=== PATIENT | female | born 1995 | race Caucasian/White ===

== ENCOUNTER 2016-05-10 19:12 | Observation (INO) | payer OTHER ==
[2016-05-10] MEDS ORDERED: SODIUM CHLORIDE 0.9% 1,000 ML IV STA (20:12)
[2016-05-10 20:49] LABS: Basophils % (A) 0 %; CH 30.7; CHCM 35.8; Eosinophils # (A) 0.2 k/uL (0-0.7); Eosinophils % (A) 2 %; HCT 35.9 % (34.0-46.0); HDW 2.44; HGB 12.5 gm/dL (11.4-16.0); Luc # (Auto) 0.12; Luc % (Auto) 1; Lymphocytes # (A) 2.7 k/uL (1.0-4.8); Lymphocytes % (A) 21 %; MCH 29.9 pg (25.0-35.0); MCHC 34.8 g/dL (31.0-37.0); Mean Platelet Volume 8.7; Monocytes # (A) 0.7 k/uL (0-1.0); Monocytes % (A) 6 %; Neutrophils % (A) 70 %; RBC 4.17 m/uL (3.80-5.40); RDW 12.4 % (11.5-15.5); WBC 12.8 k/uL (3.8-10.6); WBC (Perox) 13.38
[2016-05-10 20:56] LABS: Amorphous Sediment,Urine Rare /hpf; Appearance,Urine Turbid (Clear); Bilirubin,Urine Negative (Negative); Glucose,Urine (UA) Negative (Negative); Ketones,Urine Negative (Negative); Leukocyte Esterase,Urine Negative (Negative); Mucus,Urine Rare /hpf; Nitrite,Urine Negative (Negative); PH, Urine 7.5 (5.0-8.0); Particle Count 20446; Protein,Urine Trace (Negative); Specific Gravity,Urine 1.019 (1.001-1.035); Squamous Epithelial Cell,Urine 8 /hpf (0-4); UA Billing (MACRO vs. MICRO) MICRO; Urobilinogen,Urine <2.0 mg/dL (<2.0)
[2016-05-10 20:58] LABS: ALT 34 U/L (9-52); AST 24 U/L (14-36); Alkaline Phosphatase 49 U/L (38-126); Amylase 34 U/L (30-110); Anion Gap 11 mmol/L; Blood Urea Nitrogen 13 mg/dL (7-17); Calcium 9.7 mg/dL (8.4-10.2); Carbon Dioxide 24 mmol/L (22-30); Chloride 103 mmol/L (98-107); Glucose 93 mg/dL (74-99); Non-African American GFR(MDRD) >60 (>60 ml/min/1.73 sqM); Sodium 138 mmol/L (137-145); Total Bilirubin 0.3 mg/dL (0.2-1.3); Total Protein 7.2 g/dL (6.3-8.2)
--- NOTE | 2016-05-10 21:38 | US ---
EXAMINATION TYPE: US OB <= 14 wk fetus DATE OF EXAM: 05/10/2016 9:16 PM COMPARISON: on PACS CLINICAL HISTORY: right side pain. EXAM PERFORMED: Transabdominal (TA) EXAM MEASUREMENTS: GESTATIONAL AGE / DATING Dates by LMP: (6 weeks/6 days) EDC: 12/28/2016 Dates by Current Scan: (7 weeks/5 days) EDC: 12/22/2016 MATERNAL ANATOMY Uterus: 8.9 x 6.2 x 4.9 cm Right Ovary: 3.0 x 1.9 x 2.2 cm Left Ovary: 2.1 x 2.0 x 1.4 cm Post CDS / Adnexa: no free fluid Presence of subchorionic bleed: no GESTATION / SURVEY CRL: 1.4 cm (7 weeks/5 days) Yolk Sac (normal less than 6mm): 3.0 mm Heart Rate: 163 bpm Rhythm: Normal IUP: Viable IUP Date of LMP: 03/23/2016, G1 Beta HcG (if available): not available TECHNOLOGIST IMPRESSION: Live single IUP measuring 6 weeks 6 days IMPRESSION: The ultrasound gestational age is 7 weeks 5 days. I see no complicating process.
--- NOTE | 2016-05-10 22:17 | ED ---
Abdominal Pain HPI - General Chief Complaint: Abdominal Pain Stated Complaint: Pain on side/8wks Time Seen by Provider: 05/10/16 20:00 Source: patient, RN notes reviewed Mode of arrival: ambulatory Limitations: no limitations - History of Present Illness Initial Comments: Patient is a 20-year-old female presenting to the with chief complaint of right lower pain. She states this only been occurring for the past day. She states that she is approximately 8 weeks . She reports no vaginal discharge or changes with urination or bowel habits. She states that the crampy dull pain. She states she does have her appendix still. Patient does have a history of cholecystectomy. Patient denies any nausea or vomiting. Patient denies any recent fever, chills, shortness of breath, chest pain, back pain, numbness or tingling, dysuria or hematuria, constipation or diarrhea, headaches or visual changes, or any other current symptoms - Related Data Home Medications Medication Instructions Recorded Confirmed Pnv with Ca,No.72/Iron/FA 1 tab PO HS 05/10/16 05/10/16 [ Plus Tablet] Allergies Allergy/AdvReac Type Severity Reaction Status Date / Time No Known Allergies Allergy Verified 05/10/16 19:49 Review of Systems ROS Statement: Those systems with pertinent positive or pertinent negative responses have been documented in the HPI. ROS Other: All systems not noted in ROS Statement are negative. Past Medical History Past Medical History: No Reported History Additional Past Medical History / Comment(s): bipolar History of Any Multi-Drug Resistant Organisms: None Reported Past Surgical History: Cholecystectomy Past Psychological History: Anxiety, Bipolar Smoking Status: Current every day smoker Past Alcohol Use History: None Reported Past Drug Use History: None Reported - Past Family History Father Family Medical History: Myocardial Infarction ([place]) General Exam - General Exam Comments Initial Comments: is a pleasant 88-year-old female. She is on appear to be in any acute distress. Limitations: no limitations General appearance: alert, in no apparent distress Head exam: Present: atraumatic, normocephalic, normal inspection Eye exam: Present: normal appearance, PERRL, EOMI. Absent: scleral icterus, conjunctival injection, periorbital swelling ENT exam: Present: normal exam, mucous membranes moist Neck exam: Present: normal inspection. Absent: tenderness, meningismus, lymphadenopathy Respiratory exam: Present: normal lung sounds bilaterally. Absent: respiratory distress, wheezes, rales, rhonchi, stridor Cardiovascular Exam: Present: regular rate, normal rhythm, normal heart sounds. Absent: systolic murmur, diastolic murmur, rubs, gallop, clicks GI/Abdominal exam: Present: soft, tenderness (She has significant right lower quadrant tenderness.), normal bowel sounds. Absent: distended, guarding, rebound, rigid External exam: Present: normal external exam Speculum exam: Present: normal speculum exam. Absent: erythema, vaginal discharge, cervical discharge, vaginal bleeding, foreign body By manual exam: Present: normal by manual exam. Absent: cervical motion tenderness, adnexal tenderness, adnexal mass Extremities exam: Present: normal inspection, full ROM, normal capillary refill. Absent: tenderness, pedal edema, joint swelling, calf tenderness Back exam: Present: normal inspection Neurological exam: Present: alert, oriented X3, CN II-XII intact Psychiatric exam: Present: normal affect, normal mood Skin exam: Present: warm, dry, intact, normal color. Absent: rash Course Vital Signs 05/10/16 05/10/16 05/11/16 19:28 22:28 00:20 Temperature 98.6 F 97.8 F Pulse Rate 104 H 72 65 Respiratory 20 18 18 Rate Blood Pressure 125/76 117/53 108/61 O2 Sat by Pulse 98 99 99 Oximetry Medical Decision Making - Medical Decision Making Patient is 20-year-old female presenting to the with 1 day of right lower quadrant abdominal pain. She states that it is worse with deep pressure. She states that she's had no vaginal bleeding. She denies any dysuria or diarrhea. She denies any vomiting. Patient's transvaginal ultrasound showed no decline in the fetus. Ultrasound appendix was obtained however the appendix was not visualized. Patient will be admitted under Dr. pérez at and repeat laboratory tomorrow considering we cannot rule out appendicitis at this time. Patient does have a slightly elevated white count of 12.8. Patient started on 2 g of Rocephin a day pain management with Tylenol. - Lab Data Result diagrams: 05/10/16 20:36 05/10/16 20:36 Lab Results 05/10/16 05/10/16 05/10/16 Range/Units 20:36 20:36 20:36 WBC 12.8 H (3.8-10.6) k/uL RBC 4.17 (3.80-5.40) m/uL Hgb 12.5 (11.4-16.0) gm/dL Hct 35.9 (34.0-46.0) % MCV 86.0 (80.0-100.0) fL MCH 29.9 (25.0-35.0) pg MCHC 34.8 (31.0-37.0) g/dL RDW 12.4 (11.5-15.5) % Plt Count 250 (150-450) k/uL Neutrophils % 70 % Lymphocytes % 21 % Monocytes % 6 % Eosinophils % 2 % Basophils % 0 % Neutrophils # 9.0 H (1.3-7.7) k/uL Lymphocytes # 2.7 (1.0-4.8) k/uL Monocytes # 0.7 (0-1.0) k/uL Eosinophils # 0.2 (0-0.7) k/uL Basophils # 0.0 (0-0.2) k/uL Sodium 138 (137-145) mmol/L Potassium 4.0 (3.5-5.1) mmol/L Chloride 103 (98-107) mmol/L Carbon Dioxide 24 (22-30) mmol/L Anion Gap 11 mmol/L BUN 13 (7-17) mg/dL Creatinine 0.60 (0.52-1.04) mg/dL Est GFR (MDRD) Af Amer >60 (>60 ml/min/1.73 sqM) Est GFR (MDRD) Non-Af >60 (>60 ml/min/1.73 sqM) Glucose 93 (74-99) mg/dL Calcium 9.7 (8.4-10.2) mg/dL Total Bilirubin 0.3 (0.2-1.3) mg/dL AST 24 (14-36) U/L ALT 34 (9-52) U/L Alkaline Phosphatase 49 (38-126) U/L Total Protein 7.2 (6.3-8.2) g/dL Albumin 4.3 (3.5-5.0) g/dL Amylase 34 (30-110) U/L Lipase 74 (23-300) U/L HCG, Quant 384024.0 mIU/mL Urine Color Yellow Urine Appearance Turbid H (Clear) Urine pH 7.5 (5.0-8.0) Ur Specific [place] 1.019 (1.001-1.035) Urine Protein Trace H (Negative) Urine Glucose (UA) Negative (Negative) Urine Ketones Negative (Negative) Urine Blood Negative (Negative) Urine Nitrate Negative (Negative) Urine Bilirubin Negative (Negative) Urine Urobilinogen <2.0 (<2.0) mg/dL Ur Leukocyte Esterase Negative (Negative) Ur Squamous Epith Cells 8 H (0-4) /hpf Amorphous Sediment Rare H (None) /hpf Urine Mucus Rare H (None) /hpf - Radiology Data Radiology results: report reviewed ultrasound shows recess images 7 weeks and 5 days. No evidence of any complicating process. Ultrasound of the appendix was inconclusive as the appendix was not visualized. Both of these are read by Dr. Hampton. Disposition Clinical Impression: , RLQ abdominal pain Disposition: ADMITTED IP TO THIS [facility] Time of Disposition: 00:03
--- NOTE | 2016-05-10 23:40 | US ---
EXAMINATION TYPE: US abdomen APPY DATE OF EXAM: 05/10/2016 11:25 PM COMPARISON: NONE CLINICAL HISTORY: RLQ pain, . APPENDIX AP Diameter (normal < 6mm): not visualized Measured outer wall to outer wall. TECHNOLOGIST IMPRESSION: RLQ scanned, appendix not visualized Is the appendix seen in its entirety from the proximal cecum to distal end: Appendix not visualized IMPRESSION: Appendix is not seen. No solid or cystic mass is seen in the right lower quadrant.
[2016-05-11] MEDS ORDERED: NALOXONE 0.4 MG/ML 1 ML VIAL IV PRN ×2 (00:04→17:41)
[2016-05-11] MEDS ORDERED: KETOROLAC 30 MG/ML 1 ML VIAL IVP PRN (00:04)
[2016-05-11 01:25] VITALS: BMI 28.3
[2016-05-11] MEDS: DEXTROSE 5%-0.45% NACL 1,000 ML IV SCH ×3 (01:32→21:34)
--- NOTE | 2016-05-11 08:25 | P.GSHP ---
History of Present Illness H&P Date: 05/11/16 Chief Complaint: Right lower quadrant pain This a 20-year-old female who presented to the emergency room with severe right lower quadrant pain. Patient states the pain initially started near her periumbilical area and then settled in the right lower quadrant. She was seen emergency room and found have acute right lower quadrant pain. The patient is approximately 6 weeks . She was placed on antibiotic last night. Patient still has complaints of significant right lower quadrant pain. - Constitutional Constitutional: Reports as per HPI Past Medical History Past Medical History: No Reported History Additional Past Medical History / Comment(s): bipolar History of Any Multi-Drug Resistant Organisms: None Reported Past Surgical History: Cholecystectomy Past Psychological History: Anxiety, Bipolar Smoking Status: Current every day smoker Past Alcohol Use History: None Reported Past Drug Use History: None Reported Additional Drug Use History / Comment(s): smokes 2 cigarettes per day - Past Family History Father Family Medical History: Myocardial Infarction ([place]) Medications and Allergies Home Medications Medication Instructions Recorded Confirmed Type Pnv with Ca,No.72/Iron/FA 1 tab PO HS 05/10/16 05/10/16 History [ Plus Tablet] Allergies Allergy/AdvReac Type Severity Reaction Status Date / Time No Known Allergies Allergy Verified 05/10/16 19:49 Surgical - Exam Vital Signs Temp Pulse Resp BP Pulse Ox 98.6 F 104 H 20 125/76 98 05/10/16 19:28 05/10/16 19:28 05/10/16 19:28 05/10/16 19:28 05/10/16 19:28 - General well developed, no distress - Eyes PERRL - ENT normal pinna - Neck no masses - Respiratory normal expansion - Cardiovascular Rhythm: regular - Abdomen Abdomen soft. There is significant right lower quadrant pain with deep palpation. Abdomen: soft Results - Labs 05/10/16 20:36 05/10/16 20:36 Assessment and Plan Plan: Right lower quadrant pain. Suspect acute appendicitis. Patient will undergo laparoscopic appendectomy. Patient is aware that she is at elevated risk due to her .
[2016-05-11 14:42] VITALS: RESP 16
[2016-05-11] MEDS ORDERED: LACTATED RINGERS 1,000 ML IV ONE ×2 (16:52→17:41)
[2016-05-11] MEDS ORDERED: PROPOFOL 10 MG/ML 20 ML VIAL IV ONE (17:13)
[2016-05-11] MEDS ORDERED: GLYCOPYRROLATE 0.2 MG/ML 2 ML VIAL ONE (17:13)
[2016-05-11] MEDS ORDERED: SUCCINYLCHOLINE CHLORIDE 100 MG/5 ML SYR IV ONE (17:13)
[2016-05-11] MEDS ORDERED: NEOSTIGMINE 1 MG/ML 10 ML VIAL ONE (17:13)
[2016-05-11] MEDS ORDERED: fentaNYL (PF) 50 MCG/ML 2 ML AMP ONE (17:13)
[2016-05-11] MEDS ORDERED: HYDROmorphone (PF) 1 MG/ML ONE (17:13)
[2016-05-11] MEDS ORDERED: ROCURONIUM BROMIDE 10 MG/ML 10 ML VIAL IV ONE (17:13)
[2016-05-11] MEDS ORDERED: BUPIVACAINE (PF) 0.25% 30 ML VIAL SQ ONE ×2 (17:29)
[2016-05-11] MEDS ORDERED: HYDROcodone/APAP 5-325MG 1 EACH TAB PO PRN (17:41)
[2016-05-11] MEDS ORDERED: HYDROmorphone 1 MG/ML 1 ML SYRINGE IVP PRN (17:41)
--- NOTE | 2016-05-11 17:41 | P.OP ---
Date of Procedure: 05/11/16 Preoperative Diagnosis: Appendicitis Postoperative Diagnosis: Appendicitis Procedure(s) Performed: Laparoscopic appendectomy Anesthesia: LUCRECIA Surgeon: Marc Yoder Estimated Blood Loss (ml): 5 Pathology: other (Appendix) Condition: stable Disposition: PACU Description of Procedure: HThe patient's placed on the operating table in the supine position. The patient received general anesthesia. The abdomen was prepped and draped in the usual sterile fashion. The skin was anesthetized 1% local Xylocaine at the trocar sites. Using an 11 blade the skin was incised at the umbilicus. The umbilicus was grasped with a Olman clamp and then a Veress needle was placed into the peritoneal cavity. Position of the Veress needle was confirmed with positive drop test. After adequate insufflation a 5 mm trocar was placed into the peritoneal cavity. The abdomen was further insufflated. And then the laparoscope was placed in the peritoneal cavity. Next a 5 mm trocar was placed in the midline suprapubic position. And then a 10 mm trocar was placed in the midline epigastric position. The patient was rotated with the right side up and in Trendelenburg. The appendix was visualized. The appendix appeared to be inflamed. The appendix was grasped and then using the Harmonic scissors the mesoappendix was divided. A PDS Endoloop was then placed around the base of the appendix. And then the appendix was divided using Harmonic scissors. The appendix was placed into an Endo Catch and brought out through the 10 mm trocar site. The abdomen was irrigated. There is no bleeding seen. The trochars withdrawn. The skin was closed interrupted 3-0 Monocryl suture. Dermabond dressing was applied. Patient was sent to recovery room in stable condition.
--- NOTE | 2016-05-11 19:12 | US ---
EXAMINATION TYPE: US OB limited DATE OF EXAM: 05/11/2016 6:39 PM COMPARISON: on PACS CLINICAL HISTORY: Postprocedure- Appy, FHT's, Pt is 8 weeks . EXAM PERFORMED: Transabdominal (TA) GESTATIONAL AGE / DATING No growth performed on today?s study per ordering physician HEART RATE: 162 bpm RHYTHM: Normal TECHNOLOGIST IMPRESSION: Positive FHT's IMPRESSION: Limited exam. heart rate is detected as described.
[2016-05-11] MEDS: ONDANSETRON 4 MG/2 ML VIAL IVP PRN (19:21)
[2016-05-11] MEDS ORDERED: PRENATAL VIT-IRON-FOLIC ACID 1 EACH CAP PO SCH (21:00)
[2016-05-11] MEDS: ACETAMINOPHEN TAB 325 MG TAB PO PRN (21:22)
[2016-05-12] MEDS: DEXTROSE 5%-0.45% NACL 1,000 ML IV SCH ×3 (04:55→08:24)
[2016-05-12 07:13] LABS: Basophils % (A) 0 %; CH 30.4; CHCM 34.7; Eosinophils # (A) 0.2 k/uL (0-0.7); Eosinophils % (A) 2 %; HCT 33.6 % (34.0-46.0); HDW 2.45; HGB 11.3 gm/dL (11.4-16.0); Luc # (Auto) 0.16; Luc % (Auto) 2; Lymphocytes # (A) 1.7 k/uL (1.0-4.8); Lymphocytes % (A) 16 %; MCH 29.7 pg (25.0-35.0); MCHC 33.7 g/dL (31.0-37.0); Mean Platelet Volume 7.7; Monocytes # (A) 0.6 k/uL (0-1.0); Monocytes % (A) 5 %; Neutrophils # (A) 8.1 k/uL (1.3-7.7); Neutrophils % (A) 75 %; RBC 3.82 m/uL (3.80-5.40); RDW 12.4 % (11.5-15.5); WBC 10.8 k/uL (3.8-10.6); WBC (Perox) 10.79
[2016-05-12 07:35] LABS: ALT 31 U/L (9-52); AST 19 U/L (14-36); Alkaline Phosphatase 44 U/L (38-126); Anion Gap 10 mmol/L; Blood Urea Nitrogen 8 mg/dL (7-17); Calcium 8.7 mg/dL (8.4-10.2); Carbon Dioxide 22 mmol/L (22-30); Chloride 105 mmol/L (98-107); Glucose 88 mg/dL (74-99); Non-African American GFR(MDRD) >60 (>60 ml/min/1.73 sqM); Potassium 3.9 mmol/L (3.5-5.1); Sodium 137 mmol/L (137-145); Total Bilirubin 0.4 mg/dL (0.2-1.3); Total Protein 5.8 g/dL (6.3-8.2)
[2016-05-12 08:20] VITALS: BP 112/58; PULSE 68; TEMP 98.3
[2016-05-12] MEDS: ONDANSETRON 4 MG/2 ML VIAL IVP PRN (08:25)
[2016-05-12] MEDS: ACETAMINOPHEN TAB 325 MG TAB PO PRN (08:25)
== END 2016-05-12 12:35 | disposition home or self-care (01) ==
LOC: EC 19:12 → 3SUR 05-11 00:03
PROVIDERS: ADMIT Surgery; ATTEND Surgery
DX: O99.611 Diseases of the digestive system complicating pregnancy, first trimester (principal); K37 Unspecified appendicitis; Z3A.08 8 weeks gestation of pregnancy; F17.200 Nicotine dependence, unspecified, uncomplicated
CPT/HCPCS: 36415; 81025; 88304; 80053 ×2; 82150; 83690; 85025 ×2; 81001; 84702; 87491; 87591; 76705; 76815; 76801; 44970; 99285; 96361; G0378 ×2; J2710; J2405 ×2; J0696 ×2; J3010; J1170; S0197; J0330; J2704; 96365; 96376

== ENCOUNTER 2016-06-01 13:00 | Emergency (ER) | payer OTHER ==
[2016-06-01 15:15] LABS: Basophils # (A) 0.1 k/uL (0-0.2); Basophils % (A) 0 %; CH 30.9; CHCM 35.7; Eosinophils # (A) 0.3 k/uL (0-0.7); Eosinophils % (A) 2 %; HCT 37.6 % (34.0-46.0); HDW 2.47; HGB 12.7 gm/dL (11.4-16.0); Luc # (Auto) 0.16; Luc % (Auto) 1; Lymphocytes # (A) 2.3 k/uL (1.0-4.8); Lymphocytes % (A) 18 %; MCH 29.3 pg (25.0-35.0); MCHC 33.8 g/dL (31.0-37.0); MCV 86.8 fL (80.0-100.0); Mean Platelet Volume 8.3; Monocytes # (A) 0.6 k/uL (0-1.0); Monocytes % (A) 5 %; Neutrophils # (A) 9.5 k/uL (1.3-7.7); Neutrophils % (A) 74 %; RBC 4.33 m/uL (3.80-5.40); RDW 12.8 % (11.5-15.5); WBC 12.8 k/uL (3.8-10.6); WBC (Perox) 13.45
[2016-06-01] MEDS ORDERED: SODIUM CHLORIDE 0.9% 500 ML IV STA (15:20)
[2016-06-01 15:25] LABS: ALT 23 U/L (9-52); AST 30 U/L (14-36); Alkaline Phosphatase 43 U/L (38-126); Anion Gap 13 mmol/L; Blood Urea Nitrogen 10 mg/dL (7-17); Calcium 9.8 mg/dL (8.4-10.2); Carbon Dioxide 24 mmol/L (22-30); Chloride 103 mmol/L (98-107); Glucose 94 mg/dL (74-99); Non-African American GFR(MDRD) >60 (>60 ml/min/1.73 sqM); Sodium 140 mmol/L (137-145); Total Bilirubin 0.6 mg/dL (0.2-1.3); Total Protein 7.9 g/dL (6.3-8.2)
[2016-06-01 15:26] LABS: Potassium 4.6 mmol/L (3.5-5.1)
--- NOTE | 2016-06-01 15:26 | ED ---
General Adult HPI - General Chief complaint: Dizziness Stated complaint: dizzy, 10 weeks preg Time Seen by Provider: 06/01/16 14:21 Source: patient, RN notes reviewed Mode of arrival: ambulatory Limitations: no limitations - History of Present Illness Initial comments: Chief complaint and history of present illness a 20-year-old female who is 11 weeks . Patient reports for the past 2 or 3 weeks she been dizzy. She denies use of nail down the ground she hasn't fainted. Denying any headache chest pain or shortness of breath. She reports that she has nausea vomiting every other day from the . No blood. No diarrhea. Pains. - Related Data Home Medications Medication Instructions Recorded Confirmed Pnv with Ca,No.72/Iron/FA 1 tab PO HS 05/10/16 06/01/16 [ Plus Tablet] Allergies Allergy/AdvReac Type Severity Reaction Status Date / Time No Known Allergies Allergy Verified 06/01/16 13:39 Review of Systems ROS Statement: Those systems with pertinent positive or pertinent negative responses have been documented in the HPI. Review of systems no headache or visual acuity changes no chest pain or shortness of breath history of nausea vomiting every other day while . The patient's level weeks . No syncopal episodes just dizziness throughout the day. All systems were reviewed. Past medical problems significant for bipolar disorder not taking her medications for several months states she's happy does not feel sad. No significant past medical problems. Surgeries include cholecystectomy and just 3 weeks ago appendectomy. The patient's family history significant for father heart disease in a grandfather had pancreatic cancer. Patient has no ALLERGIES. She does smoke she done at 2 cigarettes per day advised continuing to stop. Patient denies any alcohol use ROS Other: All systems not noted in ROS Statement are negative. Past Medical History Past Medical History: No Reported History Additional Past Medical History / Comment(s): bipolar History of Any Multi-Drug Resistant Organisms: None Reported Past Surgical History: Cholecystectomy Past Psychological History: Anxiety, Bipolar Smoking Status: Current some day smoker Past Alcohol Use History: None Reported Past Drug Use History: None Reported Additional Drug Use History / Comment(s): smokes 2 cigarettes per day - Past Family History Father Family Medical History: Myocardial Infarction ([place]) General Exam - General Exam Comments Initial Comments: General: The patient is awake and alert, in no distress, and does not appear acutely ill. Vital signs show temperature 97.5 pulse 90 respiratory rate 20 pulse ox 99 % room air blood pressure 133/73 Eye: Pupils are equal, round and reactive to light, extra-ocular movements are intact ; there is normal conjunctiva bilaterally. No signs of icterus. Ears, nose, mouth and throat: There are moist mucous membranes and no oral lesions. Neck: The neck is supple, there is no tenderness , no anterior cervical lymphadenopathy, thyroid not enlarged. No neck stiffness. Cardiovascular: There is a regular rate and rhythm. No murmur, rub or gallop is appreciated. Respiratory: Lungs are clear to auscultation, respirations are non-labored, breath sounds are equal. No wheezes, stridor, rales, or rhonchi. Gastrointestinal: Soft, non-distended, non-tender abdomen without masses or organomegaly noted. There is no rebound or guarding present. No CVA tenderness. Bowel sounds are unremarkable. Patient is reportedly 11 weeks . Back: There is no tenderness to palpation in the midline. There is no obvious deformity. No rashes noted. Musculoskeletal: Normal ROM, no tenderness, There is no pedal edema. There is no calf tenderness or swelling. Sensation intact. Pulses equal bilaterally 2+. Neurological: CN II-XII intact, There are no obvious motor or sensory deficits. Coordination appears grossly intact. Speech is normal. No focal or lateralizing findings. Alert not dizzy at this time. Skin: Skin is warm and dry and no rashes or lesions are noted. Psychiatric: Cooperative, appropriate mood & affect, normal judgment. History of bipolar disorder but she is not taking any medications for several months. States she ran out of them has no money for them. She'll be advised to follow-up with her family physician, psychiatrist and DEPUTY PROGRAM MANAGER. Denying any depression etc. Limitations: no limitations Course Vital Signs 06/01/16 06/01/16 13:07 17:20 Temperature 97.5 F L 97.6 F Pulse Rate 90 73 Respiratory 20 16 Rate Blood Pressure 133/73 125/67 O2 Sat by Pulse 99 Oximetry Medical Decision Making - Medical Decision Making Medical decision making the patient's white count is 12.8 hemoglobin 12 hematocrit 37.7. Acid 4.6 with a BUN 10 creatinine 0.5 the GFR is 60. Glucose 94. Urine contaminated sample and the patient is not having any urinary tract infection type symptoms. Drug screen positive for marijuana. - Lab Data Result diagrams: 06/01/16 15:00 06/01/16 15:00 Lab Results 06/01/16 06/01/16 06/01/16 Range/Units 15:00 15:00 15:00 WBC 12.8 H (3.8-10.6) k/uL RBC 4.33 (3.80-5.40) m/uL Hgb 12.7 (11.4-16.0) gm/dL Hct 37.6 (34.0-46.0) % MCV 86.8 (80.0-100.0) fL MCH 29.3 (25.0-35.0) pg MCHC 33.8 (31.0-37.0) g/dL RDW 12.8 (11.5-15.5) % Plt Count 265 (150-450) k/uL Neutrophils % 74 % Lymphocytes % 18 % Monocytes % 5 % Eosinophils % 2 % Basophils % 0 % Neutrophils # 9.5 H (1.3-7.7) k/uL Lymphocytes # 2.3 (1.0-4.8) k/uL Monocytes # 0.6 (0-1.0) k/uL Eosinophils # 0.3 (0-0.7) k/uL Basophils # 0.1 (0-0.2) k/uL Sodium 140 (137-145) mmol/L Potassium 4.6 (3.5-5.1) mmol/L Chloride 103 (98-107) mmol/L Carbon Dioxide 24 (22-30) mmol/L Anion Gap 13 mmol/L BUN 10 (7-17) mg/dL Creatinine 0.50 L (0.52-1.04) mg/dL Est GFR (MDRD) Af Amer >60 (>60 ml/min/1.73 sqM) Est GFR (MDRD) Non-Af >60 (>60 ml/min/1.73 sqM) Glucose 94 (74-99) mg/dL Calcium 9.8 (8.4-10.2) mg/dL Total Bilirubin 0.6 (0.2-1.3) mg/dL AST 30 (14-36) U/L ALT 23 (9-52) U/L Alkaline Phosphatase 43 (38-126) U/L Troponin I (0.000-0.034) ng/mL Total Protein 7.9 (6.3-8.2) g/dL Albumin 4.6 (3.5-5.0) g/dL Urine Color Yellow Urine Appearance Cloudy H (Clear) Urine pH 6.0 (5.0-8.0) Ur Specific [place] 1.018 (1.001-1.035) Urine Protein Trace H (Negative) Urine Glucose (UA) Negative (Negative) Urine Ketones Negative (Negative) Urine Blood Negative (Negative) Urine Nitrate Negative (Negative) Urine Bilirubin Negative (Negative) Urine Urobilinogen <2.0 (<2.0) mg/dL Ur Leukocyte Esterase Large H (Negative) Urine RBC 1 (0-5) /hpf Urine WBC 51 H (0-5) /hpf Ur Squamous Epith Cells 30 H (0-4) /hpf Amorphous Sediment Few H (None) /hpf Urine Mucus Moderate H (None) /hpf Urine Opiates Screen Not Detected (NotDetected) Ur Oxycodone Screen Not Detected (NotDetected) Urine Methadone Screen Not Detected (NotDetected) Ur Propoxyphene Screen Not Detected (NotDetected) Ur Barbiturates Screen Not Detected (NotDetected) U Tricyclic Antidepress Not Detected (NotDetected) Ur Phencyclidine Scrn Not Detected (NotDetected) Ur Amphetamines Screen Not Detected (NotDetected) U Methamphetamines Scrn Not Detected (NotDetected) U Benzodiazepines Scrn Not Detected (NotDetected) Urine Cocaine Screen Not Detected (NotDetected) U Marijuana (THC) Screen Detected H (NotDetected) 06/01/16 Range/Units 15:00 WBC (3.8-10.6) k/uL RBC (3.80-5.40) m/uL Hgb (11.4-16.0) gm/dL Hct (34.0-46.0) % MCV (80.0-100.0) fL MCH (25.0-35.0) pg MCHC (31.0-37.0) g/dL RDW (11.5-15.5) % Plt Count (150-450) k/uL Neutrophils % % Lymphocytes % % Monocytes % % Eosinophils % % Basophils % % Neutrophils # (1.3-7.7) k/uL Lymphocytes # (1.0-4.8) k/uL Monocytes # (0-1.0) k/uL Eosinophils # (0-0.7) k/uL Basophils # (0-0.2) k/uL Sodium (137-145) mmol/L Potassium (3.5-5.1) mmol/L Chloride (98-107) mmol/L Carbon Dioxide (22-30) mmol/L Anion Gap mmol/L BUN (7-17) mg/dL Creatinine (0.52-1.04) mg/dL Est GFR (MDRD) Af Amer (>60 ml/min/1.73 sqM) Est GFR (MDRD) Non-Af (>60 ml/min/1.73 sqM) Glucose (74-99) mg/dL Calcium (8.4-10.2) mg/dL Total Bilirubin (0.2-1.3) mg/dL AST (14-36) U/L ALT (9-52) U/L Alkaline Phosphatase (38-126) U/L Troponin I <0.012 (0.000-0.034) ng/mL Total Protein (6.3-8.2) g/dL Albumin (3.5-5.0) g/dL Urine Color Urine Appearance (Clear) Urine pH (5.0-8.0) Ur Specific [place] (1.001-1.035) Urine Protein (Negative) Urine Glucose (UA) (Negative) Urine Ketones (Negative) Urine Blood (Negative) Urine Nitrate (Negative) Urine Bilirubin (Negative) Urine Urobilinogen (<2.0) mg/dL Ur Leukocyte Esterase (Negative) Urine RBC (0-5) /hpf Urine WBC (0-5) /hpf Ur Squamous Epith Cells (0-4) /hpf Amorphous Sediment (None) /hpf Urine Mucus (None) /hpf Urine Opiates Screen (NotDetected) Ur Oxycodone Screen (NotDetected) Urine Methadone Screen (NotDetected) Ur Propoxyphene Screen (NotDetected) Ur Barbiturates Screen (NotDetected) U Tricyclic Antidepress (NotDetected) Ur Phencyclidine Scrn (NotDetected) Ur Amphetamines Screen (NotDetected) U Methamphetamines Scrn (NotDetected) U Benzodiazepines Scrn (NotDetected) Urine Cocaine Screen (NotDetected) U Marijuana (THC) Screen (NotDetected) Disposition Clinical Impression: Dizziness, nonspecific Disposition: HOME SELF-CARE Condition: Fair Instructions: Dizziness (ED) Additional Instructions: Stay well-hydrated. Change positions slowly. Stop smoking as soon as possible. Follow-up your family physician and DEPUTY PROGRAM MANAGER Time of Disposition: 18:17
[2016-06-01 15:27] LABS: Amorphous Sediment,Urine Few /hpf; Appearance,Urine Cloudy (Clear); Bilirubin,Urine Negative (Negative); Glucose,Urine (UA) Negative (Negative); Ketones,Urine Negative (Negative); Leukocyte Esterase,Urine Large (Negative); Mucus,Urine Moderate /hpf; Nitrite,Urine Negative (Negative); Particle Count 19076; Protein,Urine Trace (Negative); RBC,Urine 1 /hpf (0-5); Specific Gravity,Urine 1.018 (1.001-1.035); Squamous Epithelial Cell,Urine 30 /hpf (0-4); UA Billing (MACRO vs. MICRO) MICRO; Urobilinogen,Urine <2.0 mg/dL (<2.0); WBC,Urine 51 /hpf (0-5)
[2016-06-01] MEDS: SODIUM CHLORIDE 0.9% 1,000 ML IV STA ×2 (16:48→17:00)
[2016-06-01 17:21] VITALS: RESP 16
[2016-06-01 18:28] VITALS: BP 129/71; PULSE 78; TEMP 97.4
== END 2016-06-01 18:28 | disposition home or self-care (01) ==
LOC: EC 13:00
DX: O26.891 Other specified pregnancy related conditions, first trimester (principal); R42 Dizziness and giddiness; Z3A.11 11 weeks gestation of pregnancy; F17.210 Nicotine dependence, cigarettes, uncomplicated
CPT/HCPCS: 36415; 80053; 80306; 81001; 84484; 85025; 93005; 96360; 99284

== ENCOUNTER → 2016-06-22 | Outpatient (CLI) | payer OTHER ==
--- NOTE | 2016-06-22 15:48 | US ---
EXAMINATION TYPE: US OB <= 14 wk fetus DATE OF EXAM: 06/22/2016 3:27 PM COMPARISON: In pacs May 10, 2016. CLINICAL HISTORY: Z36 Confirm dates. EXAM PERFORMED: Transabdominal (TA) pelvic ultrasound. EXAM MEASUREMENTS: GESTATIONAL AGE / DATING Physician Established: Not established yet Dates by LMP: Patient unsure Dates by First Scan: (14 weeks/0 days) EDC: 12/21/2016 Dates by Current Scan for: (13 weeks/3 days) EDC: 12/25/2016 MATERNAL ANATOMY Uterus: 15.9 x 7.7 x 10.1cm Right Ovary: 2.9 x 2.0 x 1.7cm Left Ovary: 3.5 x 1.5 x 1.5cm Post CDS / Adnexa: wnl Presence of free fluid: no Presence of corpus luteal cyst: not seen at this time Presence of subchorionic bleed: no GESTATION / SURVEY CRL: 7.3cm (13 weeks/3 days) Yolk Sac (normal less than 6mm): not seen at this time Heart Rate: 167 bpm Rhythm: Normal IUP: Viable IUP Nuchal Translucency 10-14wks (normal less than 3mm): unable to obtain due to position Date of LMP: Patient unsure Beta HcG (if available): Not available at time of exam TECHNOLOGIST IMPRESSION: Viable single IUP measuring 13 weeks 3 days with a heart rate of 167bpm and an estimated delivery date of 12/25/2016 Single live intrauterine gestation is redemonstrated as gestational sac and pole are seen. Yolk sac is not evident at this time. No free fluid is seen in pelvic cul-de-sac. Both ovaries are identified. No suspicious extraovarian adnexal masses are seen. IMPRESSION: Single live intrauterine gestation is redemonstrated, mean crown-rump length 7.3 cm corresponding to 13 week 3 day old fetus. Findings correlate with satisfactory progression from prior ultrasound.
[2016-06-22 16:16] LABS: CH 30.2; CHCM 34.4; HCT 36.1 % (34.0-46.0); HDW 2.49; HGB 12.1 gm/dL (11.4-16.0); MCH 29.6 pg (25.0-35.0); MCHC 33.6 g/dL (31.0-37.0); Mean Platelet Volume 7.4; RBC 4.11 m/uL (3.80-5.40); RDW 12.6 % (11.5-15.5); WBC 12.2 k/uL (3.8-10.6)
[2016-06-22 16:23] LABS: Glucose 80 mg/dL (74-99); Non-African American GFR(MDRD) >60 (>60 ml/min/1.73 sqM)
[2016-06-22 16:56] LABS: Hepatitis B Surface Ag Index 0.07
[2016-06-24 20:38] LABS: HIV-1/HIV-2 Ab Screen NONREAC (NON REAC)
== END | disposition home or self-care (01) ==
LOC: RADUSWWP 14:55
PROVIDERS: ATTEND Obstetrics & Gynecology
DX: Z36 Encounter for antenatal screening of mother (principal); O26.811 Pregnancy related exhaustion and fatigue, first trimester; Z3A.13 13 weeks gestation of pregnancy
CPT/HCPCS: 36415; 76801; 82565; 82947; 85027; 86762; 86780; 86850; 86900; 86901; 87340; 87389

== ENCOUNTER → 2016-07-28 | Outpatient (CLI) | payer OTHER ==
--- NOTE | 2016-07-28 12:40 | US ---
EXAMINATION TYPE: US OB anatomy transabd DATE OF EXAM: 07/28/2016 10:58 AM COMPARISON: Prior June HISTORY: Large for dates 2nd trimester O36.62X0 TECHNIQUE: Transabdominal (TA) EXAM MEASUREMENTS: GESTATIONAL AGE / DATING Physician Established: (19 weeks/1 days) EDC: 12/21/16 Dates by LMP: unknown Dates by First Scan: (19 weeks/1 days) EDC: 12/21/16 Dates by Current Scan for: (18 weeks/6 days) EDC: 12/23/16 SURVEY IUP: Single PLACENTA: Anterior PREVIA: No previa CAROLINA: 13.9 cm Normal CERVICAL LENGTH (transabdominal: norm > 3.0cm): 3.3 cm BIOMETRY PRESENTATION: Vertex LIE: Transverse lie with head maternal LT BPD: 4.3 cm 19 weeks / 1 days HC: 16.1 cm 18 weeks / 6 days AC: 13.3 cm 18 weeks / 6 days FL: 2.9 cm 19 weeks / 0 days ESTIMATED WEIGHT IN GRAMS: 264 grams ESTIMATED WEIGHT IN LBS/OZS: 0 lbs. 9 oz. WEIGHT PERCENTAGE BASED ON ESTABLISHED DATE: 32.4 % HC/AC: 1.21 normal FL/AC: 22.07 normal HEART RATE: 151 bpm RHYTHM: Normal ANATOMY SEEN (within normal limits): * Lateral Vent (< 1 cm) 0.6 cm * Cisterna Magna (< 1.1 cm) 0.3 cm * Nuchal Fold (< 0.6 cm) 0.4 cm * Cerebellum (varies with age) 1.6 cm Choroid Plexus (bilateral) Midline Falx Cavus Septi Pellucidi Four Chamber Heart Outflow tracts: LVOT/RVOT Stomach Situs Nose / Lips not well seen Diaphragm Kidneys (bilateral) Bladder Cord Insert Three Vessel Cord Longitudinal Spine Transverse Spine Arms (bilateral) Legs (bilateral) IMPRESSION: Single viable IUP 18wks/6days with TONE of 12/23/16 IMPRESSION:
== END | disposition home or self-care (01) ==
LOC: RADUSWWP 10:06
PROVIDERS: ATTEND Obstetrics & Gynecology
DX: O36.62X0 Maternal care for excessive fetal growth, second trimester, not applicable or unspecified (principal); Z3A.18 18 weeks gestation of pregnancy
CPT/HCPCS: 76811

== ENCOUNTER → 2016-07-28 | Outpatient (CLI) | payer OTHER ==
[2016-07-29 09:51] LABS: Alpha Fetoprotein 69.7 ng/mL; Alpha Fetoprotein (M.O.M) 1.51; Gestational Age (days) 4; Human Chorionic Gonadotropin 34.9 IU/mL; Inhibin A (M.O.M.) 1.98; Interpretation SeeBelow; Maternal Age at EDD (Yrs) 23; Unconjugated Estriol (M.O.M.) 0.75
== END ==
LOC: LABWHC1 11:02
PROVIDERS: ATTEND Obstetrics & Gynecology
DX: Z34.02 Encounter for supervision of normal first pregnancy, second trimester (principal); Z3A.00 Weeks of gestation of pregnancy not specified
CPT/HCPCS: 36415; 82105; 82677; 84702; 86336

== ENCOUNTER → 2016-09-05 | Outpatient (CLI) | payer OTHER ==
[2016-09-05 09:27] LABS: CH 31.1; CHCM 35.1; HCT 33.7 % (34.0-46.0); HDW 2.72; HGB 11.6 gm/dL (11.4-16.0); MCH 30.8 pg (25.0-35.0); MCHC 34.5 g/dL (31.0-37.0); MCV 89.2 fL (80.0-100.0); Mean Platelet Volume 7.8; RBC 3.78 m/uL (3.80-5.40); RDW 12.9 % (11.5-15.5); WBC 15.3 k/uL (3.8-10.6)
== END | disposition home or self-care (01) ==
LOC: LABWHC1 08:08
PROVIDERS: ATTEND Obstetrics & Gynecology
DX: Z34.02 Encounter for supervision of normal first pregnancy, second trimester (principal)
CPT/HCPCS: 36415; 82950; 85027

== ENCOUNTER 2016-10-24 13:28 | Observation (INO) | payer OTHER ==
[2016-10-24] MEDS: BETAMET ACET-BETAMETH SOD PHOS 6 MG/ML VIAL IM SCH (14:49)
[2016-10-24 15:07] VITALS: BP 140/75; PULSE 87; RESP 18; TEMP 96.9; BMI 27.6
--- NOTE | 2016-10-24 15:50 | US ---
EXAMINATION TYPE: US OB >= 14 wk fetus DATE OF EXAM: 10/24/2016 COMPARISON: CLINICAL HISTORY: 31 09/04 dilated to 1-2cm, abd and back pain. Pain TECHNIQUE: Transabdominal (TA) GESTATIONAL AGE / DATING Physician Established: (31 weeks/5 days) EDC: 12/21/2016 Dates by Current Scan: (30 weeks/0 days) EDC: 01/02/2017 SURVEY IUP: Single PLACENTA: Anterior PREVIA: No Previa [place]: 13.8 cm Normal CERVICAL LENGTH (transabdominal: norm > 3.0cm): 3.1 cm BIOMETRY PRESENTATION: Vertex BPD: 7.5 cm 30 weeks / 0 days HC: 27.9 cm 30 weeks / 3 days AC: 25.8 cm 30 weeks / 0 days FL: 5.9 cm 30 weeks / 5 days ESTIMATED WEIGHT IN GRAMS: 1534 grams ESTIMATED WEIGHT IN LBS/OZS: 3 lbs. 6 oz. WEIGHT PERCENTAGE BASED ON ESTABLISHED DATES: 6.7% HC/AC: 1.1 Normal FL/AC: 22.8 Normal HEART RATE: 158 bpm RHYTHM: Normal IMPRESSION: Live IUP measuring 30 weeks 0 days. Suboptimal visualization of cervix due to minimally distended bl adder.
[2016-10-24 16:53] LABS: Appearance,Urine Clear (Clear); Bilirubin,Urine Negative (Negative); Glucose,Urine (UA) Negative (Negative); Ketones,Urine Negative (Negative); Leukocyte Esterase,Urine Negative (Negative); Nitrite,Urine Negative (Negative); PH, Urine 5.5 (5.0-8.0); Particle Count 2817; Protein,Urine Negative (Negative); RBC,Urine <1 /hpf (0-5); Specific Gravity,Urine 1.002 (1.001-1.035); Squamous Epithelial Cell,Urine 1 /hpf (0-4); UA Billing (MACRO vs. MICRO) MICRO; Urobilinogen,Urine <2.0 mg/dL (<2.0); WBC,Urine <1 /hpf (0-5)
--- NOTE | 2016-10-24 17:32 | P.HPOB ---
History of Present Illness H&P Date: 10/24/16 Chief Complaint: Back pain, cramping This is a 20-year-old female 1 para 0 with an estimated date of confinement of 12/21/2016 by physician established first trimester ultrasound, who presents with some lower pelvic pain and some cramping today. FFN could not be collected due to recent intercourse. She was found to be dilated 1-2 cm in triage but having rare irregular contractions. She is admitted for Celestone injection and further evaluation. care has been with Dr. Schmid and has been uncomplicated up until this point. labs: 1 hour Glucola-113 Quad screen-negative Drug screen in June 2016 was positive for cannabinoids Random glucose-80 Hepatitis B surface antigen-negative Hemoglobin-12.1 Syphilis antibody-negative nonreactive Rubella-immune Blood type-O+ Antibody screen-negative HIV-nonreactive Obstetrical history: Review of Systems Constitutional: Denies chills, Denies fever Cardiovascular: Denies chest pain, Denies shortness of breath Respiratory: Denies cough Gastrointestinal: Reports abdominal pain (Irregular abdominal pain in the lower abdomen) Genitourinary: Reports pelvic pain, Reports Musculoskeletal: Reports low back pain Integumentary: Denies pruritus, Denies rash Neurological: Denies numbness, Denies weakness Psychiatric: Reports difficulty concentrating Past Medical History Past Medical History: COPD Additional Past Medical History / Comment(s): Was told she has COPD at 16 yrs of age and 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 History of Any Multi-Drug Resistant Organisms: None Reported Past Surgical History: Appendectomy, Cholecystectomy Past Anesthesia/Blood Transfusion Reactions: No Reported Reaction Past Psychological History: Anxiety, Bipolar Smoking Status: Former smoker Past Alcohol Use History: None Reported Past Drug Use History: None Reported - Past Family History Father Family Medical History: Myocardial Infarction ([place]) Medications and Allergies Home Medications Medication Instructions Recorded Confirmed Type RX: Pnv,Calcium 72/Iron/Folic Acid 1 tab PO HS 05/10/16 10/24/16 History [ Plus Tablet] Allergies Allergy/AdvReac Type Severity Reaction Status Date / Time No Known Allergies Allergy Verified 10/24/16 13:41 Exam Osteopathic Statement: *. No significant issues noted on an osteopathic structural exam other than those noted in the History and Physical/Consult. - Vital Signs Vital signs: Vital Signs Temp Pulse Resp BP Pulse Ox 10/24/16 15:01 96.9 F L 87 18 140/75 96 10/24/16 13:41 97.1 F L 80 16 114/64 97 Intake and Output 10/24/16 10/24/16 10/24/16 06:59 14:59 22:59 Other: Weight 75.296 kg 75.296 kg Patient Weight 10/25/16 06:59 Weight 75.296 kg HEENT: Within normal limits Heart: Regular rate and rhythm Lungs: Clear to auscultation bilaterally Abdomen: Cervix: 1-2 cm/60%/-2 station/ballotable heart tones: Reactive Contractions: Rare Extremities: Negative Homans Results Abnormal Lab Results - Last 24 Hours (Table) 10/24/16 Range/Units 16:41 Urine Blood Trace H (Negative) Assessment and Plan (1) 31 weeks gestation of Status: Acute (2) labor in third trimester without delivery Status: Acute Plan: Will admit for 23 hour observation. We'll give Celestone 12 mg every 24 hours 2 doses. Will obtain ultrasound and continue NST every shift or as needed for contractions. Will need to be on pelvic rest at this point. Patient is aware that she will need to be off of work for the remainder the .
--- NOTE | 2016-10-25 09:06 | P.DS ---
Providers Date of admission: 10/24/16 14:38 Expected date of discharge: 10/25/16 (After second Celestone injection) Attending physician: Dee Schmid Primary care physician: Stated None - Discharge Diagnosis(es) (1) 31 weeks gestation of Current Visit: Yes Status: Acute (2) labor in third trimester without delivery Current Visit: Yes Status: Acute Hospital Course: This is a 20-year-old female 1 para 0 at 31-5/7 weeks who presented with some lower pelvic pain and back pain. She was found to be dilated 1-1/2 cm ,/60% effaced/-2 station. She was not having regular contractions. Ultrasound was performed and showed normal fluid but an estimated weight at approximate 67th percentile based on physician changed her due date. The ultrasound is however fairly consistent with her LMP dating. Baby has been active and nonstress tests have been reactive. She has received 1 dose of Celestone will receive a second dose today. She will go home this afternoon on pelvic rest and modified bedrest. She will be given a note to be off of work the remainder the . I have advised her to follow up with Dr. Schmid in 1 week for a visit. She is advised to return to the hospital if she has any regular contractions, significant pelvic pain, rupture of membranes , or decreased movement. Patient Condition at Discharge: Stable Plan - Discharge Summary New Discharge Prescriptions: No Action Pnv,Calcium 72/Iron/Folic Acid [ Plus Tablet] 1 tab PO HS Discharge Medication List Pnv,Calcium 72/Iron/Folic Acid [ Plus Tablet] 1 tab PO HS 05/10/16 [ History] Follow up Appointment(s)/Referral(s): Dee Schmid DO [Doctor of Osteopathic Medicine] - 1 Week Activity/Diet/Wound Care/Special Instructions: Diet as tolerated. Pelvic rest. Modified bedrest. No strenuous activity. Off work. Discharge Disposition: HOME SELF-CARE
[2016-10-25] MEDS: BETAMET ACET-BETAMETH SOD PHOS 6 MG/ML VIAL IM SCH (14:38)
== END 2016-10-25 14:52 | disposition home or self-care (01) ==
LOC: FBPOP 13:28 → 4FBP 14:38
PROVIDERS: ADMIT Obstetrics & Gynecology; ATTEND Obstetrics & Gynecology
DX: O60.03 Preterm labor without delivery, third trimester (principal); O99.513 Diseases of the respiratory system complicating pregnancy, third trimester; Z3A.31 31 weeks gestation of pregnancy; R10.2 Pelvic and perineal pain; M54.9 Dorsalgia, unspecified; J44.9 Chronic obstructive pulmonary disease, unspecified; F41.9 Anxiety disorder, unspecified; F31.9 Bipolar disorder, unspecified; Z90.49 Acquired absence of other specified parts of digestive tract; M19.90 Unspecified osteoarthritis, unspecified site; Z87.891 Personal history of nicotine dependence; Z82.49 Family history of ischemic heart disease and other diseases of the circulatory system
CPT/HCPCS: 59025; 96372 ×2; 81001; 76805; G0463; G0378 ×2; J0702 ×2; 99213

== ENCOUNTER 2016-11-08 16:02 | Outpatient (CLI) | payer OTHER ==
[2016-11-08] MEDS ORDERED: LACTATED RINGERS 1,000 ML IV ONE (17:03)
[2016-11-08] MEDS ORDERED: AMPICILLIN 2,000 MG in SODIUM CHLORIDE 0.9% 100 ML IVPB STA (17:04)
--- NOTE | 2016-11-08 17:04 | P.HPOB ---
History of Present Illness H&P Date: 11/08/16 Chief Complaint: PROM 20 year old presents at 33 weeks 6 days with SROM at 1520. She has been watched for contractions and given celestone 10/24-10/25. She is currently not bettye and heart tones are 155-160. Review of Systems All systems: negative Constitutional: Denies chills, Denies fever Eyes: denies blurred vision, denies pain Ears, nose, mouth and throat: Denies headache, Denies sore throat Cardiovascular: Denies chest pain, Denies shortness of breath Respiratory: Denies cough Gastrointestinal: Denies abdominal pain, Denies diarrhea, Denies nausea, Denies vomiting Genitourinary: Denies dysuria, Denies hematuria Musculoskeletal: Denies myalgias Integumentary: Denies pruritus, Denies rash Neurological: Denies numbness, Denies weakness Psychiatric: Denies anxiety, Denies depression Endocrine: Denies fatigue, Denies weight change Past Medical History Past Medical History: COPD Additional Past Medical History / Comment(s): Obstetric history: She has had care with ct since 12 weeks. O+, abs neg, Rub Imm, Treponemal ab neg, HIV NR, Hep B neg. She did have some contractions and was given celestone 2 weeks ago. History of Any Multi-Drug Resistant Organisms: None Reported Past Surgical History: Appendectomy, Cholecystectomy Past Anesthesia/Blood Transfusion Reactions: No Reported Reaction Smoking Status: Former smoker Past Drug Use History: Marijuana - Past Family History Father Family Medical History: Myocardial Infarction ([place]) Medications and Allergies Home Medications Medication Instructions Recorded Confirmed Type Pnv,Calcium 72/Iron/Folic Acid 1 tab PO HS 05/10/16 10/24/16 History [ Plus Tablet] Allergies Allergy/AdvReac Type Severity Reaction Status Date / Time No Known Allergies Allergy Verified 11/08/16 16:39 Exam Osteopathic Statement: *. No significant issues noted on an osteopathic structural exam other than those noted in the History and Physical/Consult. - Vital Signs Vital signs: Intake and Output 11/08/16 11/08/16 11/08/16 06:59 14:59 22:59 Other: Weight 78.471 kg Patient Weight 11/09/16 06:59 Weight 78.471 kg HEart: RRR Lungs: CTAB Abdomen: soft, nontender Extermeties: neg anel's Assessment and Plan (1) premature rupture of membranes Status: Acute Plan: 1. repeat betamethasone 2. transfer to [facility] [place] 3. Ampicillin to start IV abx
[2016-11-08 17:52] VITALS: BP 142/86; PULSE 103; RESP 18; TEMP 98.4
[2016-11-08] MEDS ORDERED: BETAMET ACET-BETAMETH SOD PHOS 6 MG/ML VIAL IM SCH (18:00)
--- NOTE | 2016-11-09 07:35 | P.MSEPDOC ---
Presenting Problems - Arrival Data Date of Arrival on Unit: 11/08/16 Time of Arrival on Unit: 16:02 Mode of Transport: Ambulatory - Complaint OB-Reason for Admission/Chief Complaint: Rule Out PROM Medical History - Information : 1 Para: 0 Term: 0 : 0 Abortions: Spontaneous or Elective: 0 Number of Living Children: 0 - Gestational Age Expected Date of Delivery: 12/21/16 Gestational Age by TONE (wks/days): 34 Weeks and 0 Days Review of Systems - Review of Systems Constitutional: No problems Breast: No problems ENT: No problems Cardiovascular: No problems Respiratory: No problems Gastrointestinal: No problems Genitourinary: No problems Musculoskeletal: No problems Neurological: No problems Skin: No problems Vital Signs - Temperature Temperature: 98.4 F Temperature Source: Temporal Artery Scan - Pulse Right Brachial Pulse Rate: 103 Pulse Assessment Method: Automatic Cuff - Respirations Respiratory Rate: 18 Oxygen Delivery Method: Room Air O2 Sat by Pulse Oximetry: 98 - Blood Pressure Right Arm Blood Pressure: 142/86 Blood Pressure Mean: 104 Blood Pressure Source: Automatic Cuff Medical Screen Scoring (Pre) - Cervical Exam Dilation: 1-3 cm = 1 Membranes: Ruptured = 3 - Uterine Contractions Frequency: N/A Duration: N/A Intensity: N/A - Maternal Vital Signs Maternal Temperature: N/A Maternal Blood Pressure: Systolic >139 = 2 Signs of Preeclampsia: N/A Maternal Respirations: N/A - Maternal Trauma Maternal Trauma: N/A - Assessment Baseline FHR: 150 Heart Rate - NICHD Category: Category I (Normal) = 0 NST: Reactive Position: N/A Station: N/A - Total Score Total Score (Pre): 6 - Level of Risk Level of Risk: Medium (6-9) Physician Notification (Pre) - Physician Notified Physician Notified Date: 11/08/16 Physician Notified Time: 16:35 Physician/Practitioner Notifed:: Dr. Schmid Spoke With: New Order Received: No - Notification Comment Comment: Dr. Schmid coming over to see pt Disposition - Disposition OB Disposition: Transfer to other dept./facility Transferred to:: [facility] for PROM at 33 6/7 [place] Discharge Date: 11/08/16 Discharge Time: 18:04 I agree with the RN Medical Screening Exam: Yes Risk & Benefit of care provided described in d/c instruction: Yes Risk & Benefit of Care Comment: I did see the patient in triage and transferred her to [facility] for PPROM due to her status Diagnosis: ERNESTO ROM, ONSET LABOR W/N 24 HR OF RUPT, UNSP WEEKS OF GEST
== END 2016-11-08 18:04 ==
LOC: FBPOP 16:02
PROVIDERS: ATTEND Obstetrics & Gynecology
DX: O42.913 Preterm premature rupture of membranes, unspecified as to length of time between rupture and onset of labor, third trimester (principal); Z3A.34 34 weeks gestation of pregnancy
CPT/HCPCS: 59025; 96361; 96365; 84112; G0463; J0702; J0290; 99214

== ENCOUNTER → 2017-08-28 | Outpatient (CLI) | payer OTHER | END | disposition home or self-care (01) | LOC: LABWHC1 12:10 | PROVIDERS: ATTEND Obstetrics & Gynecology | DX: Z34.80 Encounter for supervision of other normal pregnancy, unspecified trimester (principal); Z3A.00 Weeks of gestation of pregnancy not specified | CPT/HCPCS: 36415; 84702 ==

== ENCOUNTER → 2017-10-03 | Outpatient (CLI) | payer OTHER ==
--- NOTE | 2017-10-03 22:14 | MR ---
EXAMINATION TYPE: MR cspine/lspine wo con DATE OF EXAM: 10/03/2017 COMPARISON: NONE HISTORY: Neck pain CONTRAST: Performed utilizing 0 mL intravenous Gadavist gadolinium contrast. TECHNIQUE: Multiplanar multiecho imaging on a 3.0 Zeenat magnet is performed through the cervical spin e. FINDINGS: The craniovertebral junction is normal. Vertebral body alignment is normal. Spinal cord maintains normal signal through its visualized course. C7-T1: No focal disc herniation or significant disc bulge is evident. No spinal canal stenosis or n eural foraminal stenosis is present. C6-7: Very subtle disc bulge may be present C6-7 with anterior thecal sac contact. No cord contact is evident. No spinal canal stenosis is present. Neural foramen are patent.. C5-6: Very subtle disc bulge may be present C5-6 with anterior thecal sac contact. No cord contact is evident. No spinal canal stenosis is present. Neural foramen are patent.. C4-5: No focal disc herniation or significant disc bulge is evident. No spinal canal stenosis or bianca ral foraminal stenosis is present. C3-4: No focal disc herniation or significant disc bulge is evident. No spinal canal stenosis or bianca ral foraminal stenosis is present. C2-3: No focal disc herniation or significant disc bulge is evident. No spinal canal stenosis or bianca ral foraminal stenosis is present. IMPRESSIONS: 1. Very minimal symmetrical bulging C5-6, C6-7 with anterior thecal sac contact. No stenosis is evide nt. 2. Very mild disc desiccation is present at C5-6, C6-7 levels. EXAMINATION TYPE: MR bubbaine/urbano wo con DATE OF EXAM: 10/03/2017 COMPARISON: NONE HISTORY: Low back pain CONTRAST: 0 mL intravenous Gadavist. TECHNIQUE: Multiplanar, multisequence images of the lumbar spine were acquired. FINDINGS: L5-S1: There is a tiny central protrusion. T2-weighted sequences there is increased signal in the pos terior substance of the disc space compatible with small annular tear. No spinal canal stenosis. No foraminal stenosis. . L4-L5: No significant disc bulge or disc herniation. No spinal canal stenosis. No foraminal stenosi s. . L3-L4: No significant disc bulge or disc herniation. No spinal canal stenosis. No foraminal stenosi s. . L2-L3: No significant disc bulge or disc herniation. No spinal canal stenosis. No foraminal stenosi s. . L1-L2: No significant disc bulge or disc herniation. No spinal canal stenosis. No foraminal stenosi s. . T12-L1: No significant disc bulge or disc herniation. No spinal canal stenosis. No foraminal stenos is. . Disc heights are preserved. Disc hydration is preserved. Vertebral body heights are preserved. Alignm ent is normal. IMPRESSION: 1. Small annular tear with a small central protrusion L5-S1. No thecal sac contact or nerve root cont act is evident.
== END | disposition home or self-care (01) ==
LOC: RADMRIMAIN 21:02
PROVIDERS: ATTEND Psychiatry & Neurology Neurology
DX: M50.222 Other cervical disc displacement at C5-C6 level (principal); M51.27 Other intervertebral disc displacement, lumbosacral region; M53.86 Other specified dorsopathies, lumbar region
CPT/HCPCS: 72141; 72148

== ENCOUNTER 2017-12-30 12:42 | Emergency (ER) | payer OTHER ==
[2017-12-30 12:56] VITALS: BP 118/69; PULSE 95; RESP 20; TEMP 98.4
[2017-12-30] MEDS ORDERED: SODIUM CHLORIDE 0.9% 1,000 ML IV STA (13:21)
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
[2017-12-30 13:53] LABS: Basophils # (A) 0.1 k/uL (0-0.2); Basophils % (A) 1 %; Eosinophils # (A) 0.2 k/uL (0-0.7); Eosinophils % (A) 2 %; HCT 41.3 % (34.0-46.0); HGB 14.2 gm/dL (11.4-16.0); Lymphocytes # (A) 1.7 k/uL (1.0-4.8); Lymphocytes % (A) 14 %; MCH 30.1 pg (25.0-35.0); MCHC 34.4 g/dL (31.0-37.0); MCV 87.4 fL (80.0-100.0); Monocytes # (A) 0.5 k/uL (0-1.0); Monocytes % (A) 4 %; Neutrophils # (A) 9.7 k/uL (1.3-7.7); Neutrophils % (A) 79 %; Platelet Count 275 k/uL (150-450); RBC 4.72 m/uL (3.80-5.40); RDW 13.5 % (11.5-15.5); WBC 12.3 k/uL (3.8-10.6)
[2017-12-30 13:59] LABS: ALT 29 U/L (9-52); AST 29 U/L (14-36); Albumin 4.8 g/dL (3.5-5.0); Alkaline Phosphatase 55 U/L (38-126); Anion Gap 14 mmol/L; Blood Urea Nitrogen 16 mg/dL (7-17); Calcium 10.1 mg/dL (8.4-10.2); Carbon Dioxide 23 mmol/L (22-30); Chloride 103 mmol/L (98-107); Glucose 113 mg/dL (74-99); Potassium 3.5 mmol/L (3.5-5.1); Sodium 140 mmol/L (137-145); Total Bilirubin 0.7 mg/dL (0.2-1.3); Total Protein 8.1 g/dL (6.3-8.2)
[2017-12-30 14:01] LABS: Appearance,Urine Clear (Clear); Bilirubin,Urine Negative (Negative); Blood,Urine Negative (Negative); Color,Urine Colorless; Glucose,Urine (UA) Negative (Negative); Ketones,Urine Trace (Negative); Leukocyte Esterase,Urine Negative (Negative); Nitrite,Urine Negative (Negative); PH, Urine 5.5 (5.0-8.0); Protein,Urine Negative (Negative); Specific Gravity,Urine 1.003 (1.001-1.035); Urobilinogen,Urine <2.0 mg/dL (<2.0)
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
== END 2017-12-30 16:24 | disposition home or self-care (01) ==
LOC: EC 12:42
DX: S30.1XXA Contusion of abdominal wall, initial encounter (principal); M25.511 Pain in right shoulder; M25.531 Pain in right wrist; M54.2 Cervicalgia; M54.9 Dorsalgia, unspecified; J44.9 Chronic obstructive pulmonary disease, unspecified; Z87.891 Personal history of nicotine dependence; W22.11XA Striking against or struck by driver side automobile airbag, initial encounter; V49.40XA Driver injured in collision with unspecified motor vehicles in traffic accident, initial encounter; Y92.410 Unspecified street and highway as the place of occurrence of the external cause
CPT/HCPCS: 36415; 80053; 85025; 81003; 81025; 73030; 73110; 72125; 70450; 71260; 74177; 99284; 96360; Q9967

== ENCOUNTER → 2018-03-02 | Outpatient (CLI) | payer OTHER ==
--- NOTE | 2018-03-02 15:28 | XR ---
EXAMINATION TYPE: XR hand complete RT DATE OF EXAM: 03/02/2018 COMPARISON: 12/30/2017 HISTORY: Arthralgia right hand TECHNIQUE: Three-view right hand with an additional dedicated image right fifth digit FINDINGS: Joint spaces are preserved. Soft tissues are normal. No acute or subacute fractures are zoila dent. IMPRESSION: 1. Normal fifth digit
== END ==
LOC: RADXRMAIN 14:56
PROVIDERS: ATTEND Family Medicine
DX: M25.541 Pain in joints of right hand (principal); S63.656A Sprain of metacarpophalangeal joint of right little finger, initial encounter

== ENCOUNTER 2018-04-13 07:00 | Emergency (ER) | payer OTHER ==
[2018-04-13 07:22] VITALS: RESP 18
[2018-04-13] MEDS ORDERED: KETOROLAC 30 MG/ML 1 ML VIAL IM STA (07:27)
[2018-04-13] MEDS ORDERED: IPRATROPIUM-ALBUTEROL 3 ML NEB INHALATION STA (07:28)
--- NOTE | 2018-04-13 07:29 | ED ---
Chest Pain HPI - General Chief Complaint: Chest Pain Stated Complaint: Chest Pain/TAYLOR Time Seen by Provider: 04/13/18 07:15 Source: patient Mode of arrival: ambulatory Limitations: no limitations - History of Present Illness Initial Comments: is a 22-year-old female with no significant past medical history presents the emergency department today for evaluation of chest pain and shortness of breath. 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 She reports for the past 2 days she's been experiencing a sharp pain in her sternum. Pain is worse with any palpation or movement. She states and Tylenol with no improvement in this pain. She describes the pain as sharp in 10 out of 10. Never expressed pain like this in the past. She also reports she feels as though she can't take a deep breath due to the pain. She has no cardiac history. No history of DVT or PE. - Related Data Previous Rx's Medication Instructions Recorded Ibuprofen [Motrin] 600 mg PO Q6HR PRN #40 day 12/30/17 Allergies Allergy/AdvReac Type Severity Reaction Status Date / Time No Known Allergies Allergy Verified 04/13/18 08:11 Review of Systems ROS Statement: Those systems with pertinent positive or pertinent negative responses have been documented in the HPI. ROS Other: All systems not noted in ROS Statement are negative. EKG Findings - EKG Comments: EKG Findings:: EKG obtained at 7:34 AM, rate is 57, rhythm is sinus bradycardia cardiac, there are no acute ST elevations or depressions no evidence of acute ischemia or infarction. Past Medical History Past Medical History: COPD Additional Past Medical History / Comment(s): Obstetric history: She has had care with ok since 12 weeks. O+, abs neg, Rub Imm, Treponemal ab neg, HIV NR, Hep B neg. She did have some contractions and was given celestone 2 weeks ago. History of Any Multi-Drug Resistant Organisms: None Reported Past Surgical History: Appendectomy, Cholecystectomy Past Anesthesia/Blood Transfusion Reactions: No Reported Reaction Past Psychological History: Anxiety, Bipolar Smoking Status: Former smoker Past Alcohol Use History: None Reported Past Drug Use History: Marijuana - Past Family History Father Family Medical History: Myocardial Infarction ([place]) General Exam - General Exam Comments Initial Comments: Physical Exam GENERAL: Patient is well-developed and well-nourished. Patient is nontoxic and well- hydrated and is in no distress. HENT: Normocephalic, Atraumatic. EYES: PERRL, EOMI PULMONARY: Unlabored respirations. No audible rales rhonchi or wheezing was noted. CARDIOVASCULAR: There is a regular rate and rhythm without any murmurs gallops or rubs. ABDOMEN: Soft and nontender with normal bowel sounds. SKIN: Skin is clear with no lesions or rashes and otherwise unremarkable. : Deferred NEUROLOGIC: Patient is alert and oriented x3. Moving all extremities spontaneously MUSCULOSKELETAL: Normal extremities with adequate strength and full range of motion. No lower extremity swelling or edema. No calf tenderness. PSYCHIATRIC: Normal psychiatric evaluation. Limitations: no limitations Limitations: no limitations Course Vital Signs 04/13/18 04/13/18 04/13/18 07:05 07:16 07:50 Temperature 98.5 F 98.4 F Pulse Rate 86 95 64 Respiratory 20 18 Rate Blood Pressure 114/75 120/85 O2 Sat by Pulse 100 99 Oximetry 04/13/18 07:55 Temperature Pulse Rate 81 Respiratory Rate Blood Pressure O2 Sat by Pulse Oximetry Chest Pain MDM - MDM She was seen and evaluated history obtained from patient Patient with chest pain that is reproducible upon palpation, worse with movement and heavy lifting Cardiac risk factors Advised suspicion for costochondritis however we will obtain EKG, chest x-ray and should with Toradol X-ray unremarkable, EKG non-ischemic Patient discharged home with by mouth Motrin and advised to rest and follow-up with primary care physician. Return parameters were discussed or question pertaining care answered patient discharged home in stable condition. Disposition Clinical Impression: Costochondral chest pain Disposition: HOME SELF-CARE Instructions: Costochondritis (ED) Is patient prescribed a controlled substance at d/c from ED?: No Referrals: Tarsha Gallagher MD [Primary Care Provider] - 1-2 days Time of Disposition: 08:23
--- NOTE | 2018-04-13 08:18 | XR ---
EXAMINATION TYPE: XR chest 2V DATE OF EXAM: 04/13/2018 COMPARISON: 07/31/2013 INDICATION: Pain, COPD TECHNIQUE: Frontal and lateral views of the chest are obtained. FINDINGS: The heart size is normal. The pulmonary vasculature is normal. The lungs are clear. IMPRESSION: 1. No acute pulmonary process.
[2018-04-13 09:12] VITALS: BP 110/68; PULSE 68; TEMP 97.9
== END 2018-04-13 09:11 | disposition home or self-care (01) ==
LOC: EC 07:00
DX: R07.1 Chest pain on breathing (principal); R06.02 Shortness of breath; Z87.891 Personal history of nicotine dependence
CPT/HCPCS: 71046; 93005; 94640; 96372; 99285

== ENCOUNTER → 2018-04-17 | Outpatient (CLI) | payer OTHER ==
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
== END | disposition home or self-care (01) ==
LOC: RADMRIMAIN 14:50
PROVIDERS: ATTEND Family Medicine
DX: M25.561 Pain in right knee (principal)

== ENCOUNTER 2018-05-22 21:51 | Emergency (ER) | payer OTHER ==
[2018-05-22] MEDS ORDERED: LIDOCAINE 5% PATCH TOPICAL STA (22:10)
--- NOTE | 2018-05-22 22:14 | ED ---
General Adult HPI - General Chief complaint: Chest Pain Stated complaint: Chest and rt arm pain Time Seen by Provider: 05/22/18 22:14 Source: patient Mode of arrival: ambulatory Limitations: no limitations - Related Data Home Medications Medication Instructions Recorded Confirmed Cyclobenzaprine [Flexeril] 5 mg PO BID PRN 05/22/18 05/22/18 Ibuprofen [Motrin] 800 mg PO BID PRN 05/22/18 05/22/18 Pregabalin [Lyrica] 50 mg PO BID 05/22/18 05/22/18 Allergies Allergy/AdvReac Type Severity Reaction Status Date / Time No Known Allergies Allergy Verified 05/22/18 22:01 Review of Systems ROS Statement: Those systems with pertinent positive or pertinent negative responses have been documented in the HPI. ROS Other: All systems not noted in ROS Statement are negative. Past Medical History Past Medical History: COPD Additional Past Medical History / Comment(s): Obstetric history: She has had care with in since 12 weeks. O+, abs neg, Rub Imm, Treponemal ab neg, HIV NR, Hep B neg. She did have some contractions and was given celestone 2 weeks ago. History of Any Multi-Drug Resistant Organisms: None Reported Past Surgical History: Appendectomy, Cholecystectomy Past Anesthesia/Blood Transfusion Reactions: No Reported Reaction Past Psychological History: Anxiety, Bipolar Smoking Status: Current some day smoker Past Alcohol Use History: None Reported Past Drug Use History: Marijuana - Past Family History Father Family Medical History: Myocardial Infarction ([place]) General Exam Limitations: no limitations Course Vital Signs 05/22/18 21:53 Temperature 98.3 F Pulse Rate 68 Respiratory 17 Rate Blood Pressure 128/72 O2 Sat by Pulse 100 Oximetry Medical Decision Making - Medical Decision Making Dictation was produced using [employer] dictation software. please excuse any grammatical, word or spelling errors. Chief Complaint: 22-year-old female with no significant past medical history presents with History of Present Illness: 22-year-old female presents with one-day history of right-sided chest pain radiation to the right arm. Patient states she was on her phone when this pain started spontaneously. She states that it sharp. Denies any inciting event. Denies any trauma to the chest. Patient states her symptoms are worse with palpation and shoulder abduction. Patient has no complaints. Denies any numbness and paresthesias to the extremities. The ROS documented in this emergency department record has been reviewed and confirmed by me. Those systems with pertinent positive or negative responses have been documented in the HPI. All other systems are other negative and/or noncontributory. PHYSICAL EXAM: General Impression: Alert and oriented x3, not in acute distress HEENT: Normocephalic atraumatic, extra-ocular movements intact, pupils equal and reactive to light bilaterally, mucous membranes moist. Cardiovascular: Heart regular rate and rhythm, S1&S2 audible, no murmurs, rubs or gallops Chest: Lungs clear to auscultation bilaterally, no rhonchi, no wheeze, no rales Abdomen: Bowel sounds present, abdomen soft, non-tender, non-distended, no organomegaly Musculoskeletal: Pulses present and equal in all extremities, no peripheral edema, tenderness to palpation to the right anterior chest. Pain is elicited with right upper extremity abduction. Motor: Power 5/5 bilaterally, no focal deficits noted Neurological: CN II-XII grossly intact, no focal motor or sensory deficits noted Skin: Intact with no visualized rashes Psych: Normal affect and mood ED course: 22-year-old female with clinical presentation consistent with atypical chest pain. Vital signs upon arrival are within acceptable limits. Patient's pain is reproduced with musculoskeletal examination. Lidocaine patch and Naprosyn was administered patient. Patient was observed in ER for couple hours. Patient reevaluated with improvement symptoms. Patient told to rest the area and avoid any strenuous activity. Told to follow up with primary care physician for outpatient medicine or symptoms. Chest x-ray and EKG are benign EKG interpretation: Ventricular rate 72, normal sinus rhythm, PA interval 150, care is 80, QTc 479. No PA prolongation, no QTC prolongation, no ST or T-wave changes noted. . Overall, this EKG is unremarkable - Lab Data Lab Results 05/22/18 Range/Units 23:00 Urine HCG, Qual Not Detected (Not Detectd) Disposition Clinical Impression: Chest pain Disposition: HOME SELF-CARE Condition: Good Instructions (If sedation given, give patient instructions): Costochondritis ( ED) Is patient prescribed a controlled substance at d/c from ED?: No Referrals: Tarsha Gallagher MD [Primary Care Provider] - 1-2 days Time of Disposition: 00:19
--- NOTE | 2018-05-22 23:31 | XR ---
EXAMINATION TYPE: XR chest 2V DATE OF EXAM: 05/22/2018 COMPARISON: 04/13/2018 HISTORY: Chest pain TECHNIQUE: Frontal and lateral views of the chest are obtained. FINDINGS: Heart and mediastinum are normal. Lungs are clear. Diaphragm is normal. Bony thorax appear s normal. There are chest leads. IMPRESSION: Normal chest. No change.
[2018-05-23] MEDS ORDERED: NAPROXEN 250 MG TAB PO STA (00:04)
[2018-05-23 00:19] VITALS: BP 121/74; PULSE 79; RESP 18; TEMP 97.9
== END 2018-05-23 00:25 | disposition home or self-care (01) ==
LOC: EC 21:51
DX: R07.89 Other chest pain (principal); M79.601 Pain in right arm; F17.200 Nicotine dependence, unspecified, uncomplicated; Z87.09 Personal history of other diseases of the respiratory system; Z82.49 Family history of ischemic heart disease and other diseases of the circulatory system; Z79.899 Other long term (current) drug therapy
CPT/HCPCS: 71046; 81025; 93005; 99285

== ENCOUNTER 2018-10-28 06:42 | Emergency (ER) | payer OTHER ==
[2018-10-28] MEDS ORDERED: SODIUM CHLORIDE 0.9% 500 ML 500 ML IV STA (07:19)
[2018-10-28 07:37] LABS: Appearance,Urine Cloudy (Clear); Bacteria,Urine Rare /hpf; Bilirubin,Urine Negative (Negative); Blood,Urine Negative (Negative); Color,Urine Yellow; Glucose,Urine (UA) Negative (Negative); Ketones,Urine Negative (Negative); Leukocyte Esterase,Urine Trace (Negative); Mucus,Urine Moderate /hpf; Nitrite,Urine Negative (Negative); PH, Urine 5.5 (5.0-8.0); Protein,Urine Trace (Negative); RBC,Urine 1 /hpf (0-5); Specific Gravity,Urine 1.026 (1.001-1.035); Sperm,Urine Rare /hpf; Squamous Epithelial Cell,Urine 11 /hpf (0-4); Urobilinogen,Urine <2.0 mg/dL (<2.0)
--- NOTE | 2018-10-28 07:40 | ED ---
General Adult HPI - General Chief complaint: Nausea/Vomiting/Diarrhea Stated complaint: Chest Pain Nausea Time Seen by Provider: 10/28/18 07:01 Source: patient, RN notes reviewed Mode of arrival: wheelchair Limitations: no limitations - History of Present Illness Initial comments: 22-year-old female with a past medical history of asthma presents to the emergency department for a chief complaint of chest pain. Sates this chest pain has been ongoing for the past night. States she's also been vomiting. Denies any abdominal pain States these started at the same time. Patient states movement makes the pain in her chest worse. Patient states breathing also makes the pain worse. States it is a sharp stabbing pain that radiates throughout her chest. States she just stopped taking control this month but otherwise have been on oral contraceptives for quite some time. Admits to shortness of breath as well but states she always has this shortness of breath. States she has had chest pain before but that this is worse.Patient has no other complaints at this time including shortness of breath, chest pain, abdominal pain, headache, or visual changes. - Related Data Home Medications Medication Instructions Recorded Confirmed Cyclobenzaprine [Flexeril] 5 mg PO BID PRN 05/22/18 10/28/18 Ibuprofen [Motrin] 800 mg PO BID PRN 05/22/18 10/28/18 Albuterol Inhaler [Ventolin Hfa 2 puff INHALATION RT-Q4H PRN 10/28/18 10/28/18 Inhaler] Pregabalin [Lyrica] 75 mg PO BID 10/28/18 10/28/18 Previous Rx's Medication Instructions Recorded Ondansetron [Zofran ODT] 4 mg PO Q8HR PRN #15 tab 10/28/18 Allergies Allergy/AdvReac Type Severity Reaction Status Date / Time No Known Allergies Allergy Verified 10/28/18 08:48 Review of Systems ROS Statement: Those systems with pertinent positive or pertinent negative responses have been documented in the HPI. ROS Other: All systems not noted in ROS Statement are negative. Past Medical History Past Medical History: COPD Additional Past Medical History / Comment(s): Obstetric history: She has had care with [facility] since 12 weeks. O+, abs neg, Rub Imm, Treponemal ab neg, HIV NR, Hep B neg. She did have some contractions and was given christie stone 2 weeks ago, History of Any Multi-Drug Resistant Organisms: None Reported Past Surgical History: Appendectomy, Cholecystectomy Past Anesthesia/Blood Transfusion Reactions: No Reported Reaction Past Psychological History: Anxiety, Bipolar Smoking Status: Former smoker Past Alcohol Use History: None Reported Past Drug Use History: Marijuana - Past Family History Father Family Medical History: Myocardial Infarction ([place]) General Exam Limitations: no limitations General appearance: alert, in no apparent distress Head exam: Present: atraumatic, normocephalic, normal inspection Eye exam: Present: normal appearance, PERRL, EOMI. Absent: scleral icterus, conjunctival injection, periorbital swelling ENT exam: Present: normal exam, mucous membranes moist Neck exam: Present: normal inspection, full ROM. Absent: tenderness, meningismus, lymphadenopathy Respiratory exam: Present: normal lung sounds bilaterally, chest wall tenderness (Patient does have chest wall tenderness, reproducible with palpation). Absent: respiratory distress, wheezes, rales, rhonchi, stridor Cardiovascular Exam: Present: regular rate, normal rhythm, normal heart sounds. Absent: systolic murmur, diastolic murmur, rubs, gallop, clicks GI/Abdominal exam: Present: soft, normal bowel sounds. Absent: distended, tenderness (No tenderness noted to the abdomen), guarding, rebound, rigid Neurological exam: Present: alert, oriented X3, CN II-XII intact Psychiatric exam: Present: normal affect, normal mood Course Vital Signs 10/28/18 10/28/18 06:46 08:40 Temperature 98.2 F 98.4 F Pulse Rate 67 70 Respiratory 17 18 Rate Blood Pressure 118/75 114/78 O2 Sat by Pulse 100 100 Oximetry EKG Findings - EKG Comments: EKG Findings:: Sinus bradycardia, ventricular rate 50, TN interval 136, QRS duration 86, QTC 410 Medical Decision Making - Medical Decision Making 22-year-old female presents with chest pain and vomiting since last night. Patient states she has had chest pain before and has been seen in the ER several times for chest pain. On exam pain is reproducible to palpation of the chest. Vitals are stable. Exam is unremarkable, patient is resting comfortably, playing on her phone. CBC and CMP are unremarkable. However there is a lipase of 564 noted, likely related to vomiting as patient has no abdominal tenderness whatsoever including epigastric tenderness. Urine is negative. EKG shows a normal sinus rhythm. Troponin negative. D-dimer negative. Chest x-ray negative. Patient reevaluated. Still having some pain, given Toradol, resting comfortably at this time even the pain is worse with movement and is reproducible on exam is likely chest wall pain. Vomiting may be secondary to a developing gastroenteritis, no abdominal pain whatsoever at this time however. Discussed following up with primary care in 1-2 days. Discussed returning here if she has any worsening symptoms. - Lab Data Result diagrams: 10/28/18 07:40 10/28/18 07:40 Lab Results 10/28/18 10/28/18 10/28/18 Range/Units 06:52 06:52 07:40 WBC 8.9 (3.8-10.6) k/uL RBC 4.32 (3.80-5.40) m/uL Hgb 12.9 (11.4-16.0) gm/dL Hct 36.9 (34.0-46.0) % MCV 85.6 (80.0-100.0) fL MCH 29.9 (25.0-35.0) pg MCHC 34.9 (31.0-37.0) g/dL RDW 13.7 (11.5-15.5) % Plt Count 246 (150-450) k/uL Neutrophils % 61 % Lymphocytes % 28 % Monocytes % 6 % Eosinophils % 2 % Basophils % 1 % Neutrophils # 5.5 (1.3-7.7) k/uL Lymphocytes # 2.5 (1.0-4.8) k/uL Monocytes # 0.5 (0-1.0) k/uL Eosinophils # 0.2 (0-0.7) k/uL Basophils # 0.1 (0-0.2) k/uL PT (9.0-12.0) sec INR (<1.2) APTT (22.0-30.0) sec D-Dimer (<0.60) mg/L FEU Sodium (137-145) mmol/L Potassium (3.5-5.1) mmol/L Chloride (98-107) mmol/L Carbon Dioxide (22-30) mmol/L Anion Gap mmol/L BUN (7-17) mg/dL Creatinine (0.52-1.04) mg/dL Est GFR (CKD-EPI)AfAm (>60 ml/min/1.73 sqM) Est GFR (CKD-EPI)NonAf (>60 ml/min/1.73 sqM) Glucose (74-99) mg/dL Calcium (8.4-10.2) mg/dL Magnesium (1.6-2.3) mg/dL Total Bilirubin (0.2-1.3) mg/dL AST (14-36) U/L ALT (9-52) U/L Alkaline Phosphatase (38-126) U/L Troponin I (0.000-0.034) ng/mL Total Protein (6.3-8.2) g/dL Albumin (3.5-5.0) g/dL Amylase (30-110) U/L Lipase (23-300) U/L Urine Color Yellow Urine Appearance Cloudy H (Clear) Urine pH 5.5 (5.0-8.0) Ur Specific [place] 1.026 (1.001-1.035) Urine Protein Trace H (Negative) Urine Glucose (UA) Negative (Negative) Urine Ketones Negative (Negative) Urine Blood Negative (Negative) Urine Nitrite Negative (Negative) Urine Bilirubin Negative (Negative) Urine Urobilinogen <2.0 (<2.0) mg/dL Ur Leukocyte Esterase Trace H (Negative) Urine RBC 1 (0-5) /hpf Urine WBC 4 (0-5) /hpf Ur Squamous Epith Cells 11 H (0-4) /hpf Urine Bacteria Rare H (None) /hpf Urine Mucus Moderate H (None) /hpf Urine Sperm Rare (None) /hpf Urine HCG, Qual Not Detected (Not Detectd) 10/28/18 10/28/18 10/28/18 Range/Units 07:40 07:40 07:40 WBC (3.8-10.6) k/uL RBC (3.80-5.40) m/uL Hgb (11.4-16.0) gm/dL Hct (34.0-46.0) % MCV (80.0-100.0) fL MCH (25.0-35.0) pg MCHC (31.0-37.0) g/dL RDW (11.5-15.5) % Plt Count (150-450) k/uL Neutrophils % % Lymphocytes % % Monocytes % % Eosinophils % % Basophils % % Neutrophils # (1.3-7.7) k/uL Lymphocytes # (1.0-4.8) k/uL Monocytes # (0-1.0) k/uL Eosinophils # (0-0.7) k/uL Basophils # (0-0.2) k/uL PT 9.8 (9.0-12.0) sec INR 0.9 (<1.2) APTT 24.6 (22.0-30.0) sec D-Dimer <0.17 (<0.60) mg/L FEU Sodium 140 (137-145) mmol/L Potassium 3.8 (3.5-5.1) mmol/L Chloride 109 H (98-107) mmol/L Carbon Dioxide 24 (22-30) mmol/L Anion Gap 7 mmol/L BUN 11 (7-17) mg/dL Creatinine 0.75 (0.52-1.04) mg/dL Est GFR (CKD-EPI)AfAm >90 (>60 ml/min/1.73 sqM) Est GFR (CKD-EPI)NonAf >90 (>60 ml/min/1.73 sqM) Glucose 99 (74-99) mg/dL Calcium 8.4 (8.4-10.2) mg/dL Magnesium 1.9 (1.6-2.3) mg/dL Total Bilirubin 0.3 (0.2-1.3) mg/dL AST 22 (14-36) U/L ALT 27 (9-52) U/L Alkaline Phosphatase 37 L (38-126) U/L Troponin I <0.012 (0.000-0.034) ng/mL Total Protein 5.4 L (6.3-8.2) g/dL Albumin 3.3 L (3.5-5.0) g/dL Amylase 85 (30-110) U/L Lipase 564 H (23-300) U/L Urine Color Urine Appearance (Clear) Urine pH (5.0-8.0) Ur Specific [place] (1.001-1.035) Urine Protein (Negative) Urine Glucose (UA) (Negative) Urine Ketones (Negative) Urine Blood (Negative) Urine Nitrite (Negative) Urine Bilirubin (Negative) Urine Urobilinogen (<2.0) mg/dL Ur Leukocyte Esterase (Negative) Urine RBC (0-5) /hpf Urine WBC (0-5) /hpf Ur Squamous Epith Cells (0-4) /hpf Urine Bacteria (None) /hpf Urine Mucus (None) /hpf Urine Sperm (None) /hpf Urine HCG, Qual (Not Detectd) Disposition Clinical Impression: Atypical chest pain, Chest wall pain Disposition: HOME SELF-CARE Condition: Good Instructions (If sedation given, give patient instructions): Chest Pain (ED), Costochondritis (ED) Additional Instructions: Please take Motrin and Tylenol for pain. Please follow-up with primary care in 1-2 days. Return here if you have any worsening symptoms. Prescriptions: Ondansetron [Zofran ODT] 4 mg PO Q8HR PRN #15 tab PRN Reason: Nausea Is patient prescribed a controlled substance at d/c from ED?: No Referrals: Tarsha Gallagher MD [Primary Care Provider] - 1-2 days Time of Disposition: 09:05
[2018-10-28 07:53] LABS: Basophils # (A) 0.1 k/uL (0-0.2); Basophils % (A) 1 %; Eosinophils # (A) 0.2 k/uL (0-0.7); Eosinophils % (A) 2 %; HCT 36.9 % (34.0-46.0); HGB 12.9 gm/dL (11.4-16.0); Lymphocytes # (A) 2.5 k/uL (1.0-4.8); Lymphocytes % (A) 28 %; MCH 29.9 pg (25.0-35.0); MCHC 34.9 g/dL (31.0-37.0); MCV 85.6 fL (80.0-100.0); Mean Platelet Volume 8.1; Monocytes # (A) 0.5 k/uL (0-1.0); Monocytes % (A) 6 %; Neutrophils # (A) 5.5 k/uL (1.3-7.7); Neutrophils % (A) 61 %; Platelet Count 246 k/uL (150-450); RBC 4.32 m/uL (3.80-5.40); RDW 13.7 % (11.5-15.5); WBC 8.9 k/uL (3.8-10.6)
--- NOTE | 2018-10-28 07:55 | XR ---
EXAMINATION TYPE: XR chest 2V DATE OF EXAM ORDERED: 10/28/2018 HISTORY: Chest Pain. REFERENCE: None. FINDINGS: The lungs are clear. Pleural spaces are clear. Heart size is normal. IMPRESSION: NORMAL CHEST.
[2018-10-28 08:06] LABS: ALT 27 U/L (9-52); AST 22 U/L (14-36); African American GFR (CKD) >90 (>60 ml/min/1.73 sqM); Albumin 3.3 g/dL (3.5-5.0); Alkaline Phosphatase 37 U/L (38-126); Amylase 85 U/L (30-110); Anion Gap 7 mmol/L; Blood Urea Nitrogen 11 mg/dL (7-17); Calcium 8.4 mg/dL (8.4-10.2); Carbon Dioxide 24 mmol/L (22-30); Chloride 109 mmol/L (98-107); Glucose 99 mg/dL (74-99); Lipase 564 U/L (23-300); Magnesium 1.9 mg/dL (1.6-2.3); Potassium 3.8 mmol/L (3.5-5.1); Sodium 140 mmol/L (137-145); Total Bilirubin 0.3 mg/dL (0.2-1.3); Total Protein 5.4 g/dL (6.3-8.2)
[2018-10-28 08:12] LABS: D-Dimer <0.17 mg/L FEU (<0.60); INR 0.9 (<1.2); Partial Thromboplastin Time 24.6 sec (22.0-30.0); Prothrombin Time 9.8 sec (9.0-12.0)
[2018-10-28 08:42] VITALS: BP 114/78; PULSE 70; RESP 18; TEMP 98.4
[2018-10-28] MEDS ORDERED: KETOROLAC 30 MG/ML 1 ML VIAL IVP STA (09:05)
== END 2018-10-28 09:25 | disposition home or self-care (01) ==
LOC: EC 06:42
DX: R07.89 Other chest pain (principal); R11.10 Vomiting, unspecified; J44.9 Chronic obstructive pulmonary disease, unspecified; F41.9 Anxiety disorder, unspecified; Z79.899 Other long term (current) drug therapy; Z87.891 Personal history of nicotine dependence
CPT/HCPCS: 36415; 93005; 85379; 80053; 82150; 83690; 83735; 84484; 85025; 85610; 85730; 81001; 81025; 71046; 99284; 96374; 96361; J1885

== ENCOUNTER 2018-11-04 22:09 | Emergency (ER) | payer OTHER ==
[2018-11-04 22:31] VITALS: TEMP 98.9
[2018-11-04] MEDS ORDERED: SODIUM CHLORIDE 0.9% 1,000 ML IV STA (22:44)
[2018-11-04] MEDS ORDERED: ONDANSETRON 4 MG/2 ML VIAL IVP STA (22:44)
[2018-11-04] MEDS ORDERED: FAMOTIDINE 20 MG/2 ML VIAL IV STA (22:45)
--- NOTE | 2018-11-04 22:49 | ED ---
Nausea/Vomiting/Diarrhea HPI - General Chief complaint: Nausea/Vomiting/Diarrhea Stated complaint: Vomiting Time Seen by Provider: 11/04/18 22:32 Source: patient Mode of arrival: ambulatory Limitations: no limitations - History of Present Illness Initial comments: Hemalatha is a previously healthy 22-year-old female who was evaluated in our emergency department last week for nausea and vomiting. Patient reports that she felt better and was discharged home however throughout the week she's had intermittent episodes of nausea, she reports that throughout the day today she still nauseated and has been having nausea, vomiting and diarrhea for the past 2 hours. Patient reports that she cannot keep anything down. She reports she hasn't been eating well all week and she is concerned that she may be dehydrated. Patient reports that her does last week was negative. Patient denies any history of inflammatory or irritable bowel. She has had an appendectomy and a cholecystectomy in the past. - Related Data Home Medications Medication Instructions Recorded Confirmed Cyclobenzaprine [Flexeril] 5 mg PO BID PRN 05/22/18 10/28/18 Ibuprofen [Motrin] 800 mg PO BID PRN 05/22/18 10/28/18 Albuterol Inhaler [Ventolin Hfa 2 puff INHALATION RT-Q4H PRN 10/28/18 10/28/18 Inhaler] Pregabalin [Lyrica] 75 mg PO BID 10/28/18 10/28/18 Previous Rx's Medication Instructions Recorded Ondansetron [Zofran ODT] 4 mg PO Q8HR PRN #15 tab 10/28/18 Ondansetron [Zofran ODT] 4 mg PO Q8HR #12 tab 11/05/18 Allergies Allergy/AdvReac Type Severity Reaction Status Date / Time No Known Allergies Allergy Verified 11/04/18 22:31 Review of Systems ROS Statement: Those systems with pertinent positive or pertinent negative responses have been documented in the HPI. ROS Other: All systems not noted in ROS Statement are negative. Past Medical History Past Medical History: COPD Additional Past Medical History / Comment(s): Obstetric history: She has had care with me since 12 weeks. O+, abs neg, Rub Imm, Treponemal ab neg, HIV NR, Hep B neg. She did have some contractions and was given vinod one 2 weeks ago, History of Any Multi-Drug Resistant Organisms: None Reported Past Surgical History: Appendectomy, Cholecystectomy Past Anesthesia/Blood Transfusion Reactions: No Reported Reaction Past Psychological History: Anxiety, Bipolar Smoking Status: Former smoker Past Alcohol Use History: None Reported Past Drug Use History: Marijuana - Past Family History Father Family Medical History: Myocardial Infarction ([place]) General Exam - General Exam Comments Initial Comments: Physical Exam GENERAL: Patient is well-developed and well-nourished. Patient is nontoxic and well- hydrated and is in no distress. HENT: Normocephalic, Atraumatic. EYES: PERRL, EOMI PULMONARY: Unlabored respirations. No audible rales rhonchi or wheezing was noted. CARDIOVASCULAR: There is a regular rate and rhythm without any murmurs gallops or rubs. ABDOMEN: Soft and nontender with normal bowel sounds. SKIN: Skin is clear with no lesions or rashes and otherwise unremarkable. : Deferred NEUROLOGIC: Patient is alert and oriented x3. Moving all extremities spontaneously MUSCULOSKELETAL: Normal extremities with adequate strength and full range of motion. No lower extremity swelling or edema. No calf tenderness. PSYCHIATRIC: Normal psychiatric evaluation. Limitations: no limitations Course Vital Signs 11/04/18 11/05/18 22:29 01:21 Temperature 98.9 F Pulse Rate 63 60 Respiratory 18 16 Rate Blood Pressure 117/79 110/65 O2 Sat by Pulse 98 100 Oximetry Medical Decision Making - Medical Decision Making The patient was seen and evaluated, history is obtained from patient Labs and medication were ordered I discussed with the patient that there are no antiemetics proven to be absolutely safe in however she does not believe she is at this time is comfortable taking Zofran prior to test results. Labs with no significant abnormalities Patient is not patient was reevaluated after fluids and Zofran she rep orts no further vomiting, nausea is improved significantly. She'll be discharged home with prescription for Zofran. I advised the patient to keep a food diary and tight identified foods that exacerbate and foods that she tolerates well. Advised to follow-up with her primary care physician for ref erral to gastroenterology. All questions pertaining care were answered return parameters were discussed the patient was discharged home in stable condition. - Lab Data Result diagrams: 11/04/18 22:53 11/04/18 22:53 Lab Results 11/04/18 11/04/18 11/04/18 Range/Units 22:53 22:53 22:53 WBC 11.7 H (3.8-10.6) k/uL RBC 4.46 (3.80-5.40) m/uL Hgb 13.5 (11.4-16.0) gm/dL Hct 38.3 (34.0-46.0) % MCV 85.8 (80.0-100.0) fL MCH 30.2 (25.0-35.0) pg MCHC 35.2 (31.0-37.0) g/dL RDW 14.2 (11.5-15.5) % Plt Count 303 (150-450) k/uL Neutrophils % 64 % Lymphocytes % 27 % Monocytes % 6 % Eosinophils % 2 % Basophils % 1 % Neutrophils # 7.5 (1.3-7.7) k/uL Lymphocytes # 3.1 (1.0-4.8) k/uL Monocytes # 0.7 (0-1.0) k/uL Eosinophils # 0.2 (0-0.7) k/uL Basophils # 0.1 (0-0.2) k/uL Sodium 141 (137-145) mmol/L Potassium 4.1 (3.5-5.1) mmol/L Chloride 108 H (98-107) mmol/L Carbon Dioxide 24 (22-30) mmol/L Anion Gap 9 mmol/L BUN 13 (7-17) mg/dL Creatinine 0.75 (0.52-1.04) mg/dL Est GFR (CKD-EPI)AfAm >90 (>60 ml/min/1.73 sqM) Est GFR (CKD-EPI)NonAf >90 (>60 ml/min/1.73 sqM) Glucose 102 H (74-99) mg/dL Calcium 9.5 (8.4-10.2) mg/dL Magnesium 2.0 (1.6-2.3) mg/dL Total Bilirubin 0.4 (0.2-1.3) mg/dL AST 25 (14-36) U/L ALT 30 (9-52) U/L Alkaline Phosphatase 37 L (38-126) U/L Total Protein 6.3 (6.3-8.2) g/dL Albumin 4.0 (3.5-5.0) g/dL Lipase 86 (23-300) U/L Urine Color Yellow Urine Appearance Cloudy H (Clear) Urine pH 6.5 (5.0-8.0) Ur Specific [place] 1.025 (1.001-1.035) Urine Protein Trace H (Negative) Urine Glucose (UA) Negative (Negative) Urine Ketones 1+ H (Negative) Urine Blood Negative (Negative) Urine Nitrite Negative (Negative) Urine Bilirubin Negative (Negative) Urine Urobilinogen 2.0 (<2.0) mg/dL Ur Leukocyte Esterase Negative (Negative) Urine WBC 1 (0-5) /hpf Ur Squamous Epith Cells 4 (0-4) /hpf Urine Mucus Moderate H (None) /hpf Urine HCG, Qual (Not Detectd) 11/04/18 Range/Units 22:53 WBC (3.8-10.6) k/uL RBC (3.80-5.40) m/uL Hgb (11.4-16.0) gm/dL Hct (34.0-46.0) % MCV (80.0-100.0) fL MCH (25.0-35.0) pg MCHC (31.0-37.0) g/dL RDW (11.5-15.5) % Plt Count (150-450) k/uL Neutrophils % % Lymphocytes % % Monocytes % % Eosinophils % % Basophils % % Neutrophils # (1.3-7.7) k/uL Lymphocytes # (1.0-4.8) k/uL Monocytes # (0-1.0) k/uL Eosinophils # (0-0.7) k/uL Basophils # (0-0.2) k/uL Sodium (137-145) mmol/L Potassium (3.5-5.1) mmol/L Chloride (98-107) mmol/L Carbon Dioxide (22-30) mmol/L Anion Gap mmol/L BUN (7-17) mg/dL Creatinine (0.52-1.04) mg/dL Est GFR (CKD-EPI)AfAm (>60 ml/min/1.73 sqM) Est GFR (CKD-EPI)NonAf (>60 ml/min/1.73 sqM) Glucose (74-99) mg/dL Calcium (8.4-10.2) mg/dL Magnesium (1.6-2.3) mg/dL Total Bilirubin (0.2-1.3) mg/dL AST (14-36) U/L ALT (9-52) U/L Alkaline Phosphatase (38-126) U/L Total Protein (6.3-8.2) g/dL Albumin (3.5-5.0) g/dL Lipase (23-300) U/L Urine Color Urine Appearance (Clear) Urine pH (5.0-8.0) Ur Specific [place] (1.001-1.035) Urine Protein (Negative) Urine Glucose (UA) (Negative) Urine Ketones (Negative) Urine Blood (Negative) Urine Nitrite (Negative) Urine Bilirubin (Negative) Urine Urobilinogen (<2.0) mg/dL Ur Leukocyte Esterase (Negative) Urine WBC (0-5) /hpf Ur Squamous Epith Cells (0-4) /hpf Urine Mucus (None) /hpf Urine HCG, Qual Not Detected (Not Detectd) Disposition Clinical Impression: Nausea and vomiting Disposition: HOME SELF-CARE Condition: Stable Instructions (If sedation given, give patient instructions): Acute Nausea and Vomiting (ED) Prescriptions: Ondansetron [Zofran ODT] 4 mg PO Q8HR #12 tab Is patient prescribed a controlled substance at d/c from ED?: No Referrals: Tarsha Gallagher MD [Primary Care Provider] - 1-2 days
[2018-11-04 23:06] LABS: Basophils # (A) 0.1 k/uL (0-0.2); Basophils % (A) 1 %; Eosinophils # (A) 0.2 k/uL (0-0.7); Eosinophils % (A) 2 %; HCT 38.3 % (34.0-46.0); HGB 13.5 gm/dL (11.4-16.0); Lymphocytes # (A) 3.1 k/uL (1.0-4.8); Lymphocytes % (A) 27 %; MCH 30.2 pg (25.0-35.0); MCHC 35.2 g/dL (31.0-37.0); MCV 85.8 fL (80.0-100.0); Mean Platelet Volume 7.7; Monocytes # (A) 0.7 k/uL (0-1.0); Monocytes % (A) 6 %; Neutrophils # (A) 7.5 k/uL (1.3-7.7); Neutrophils % (A) 64 %; Platelet Count 303 k/uL (150-450); RBC 4.46 m/uL (3.80-5.40); RDW 14.2 % (11.5-15.5); WBC 11.7 k/uL (3.8-10.6)
[2018-11-04 23:15] LABS: ALT 30 U/L (9-52); AST 25 U/L (14-36); African American GFR (CKD) >90 (>60 ml/min/1.73 sqM); Alkaline Phosphatase 37 U/L (38-126); Anion Gap 9 mmol/L; Blood Urea Nitrogen 13 mg/dL (7-17); Calcium 9.5 mg/dL (8.4-10.2); Carbon Dioxide 24 mmol/L (22-30); Chloride 108 mmol/L (98-107); Glucose 102 mg/dL (74-99); Lipase 86 U/L (23-300); Potassium 4.1 mmol/L (3.5-5.1); Sodium 141 mmol/L (137-145); Total Bilirubin 0.4 mg/dL (0.2-1.3); Total Protein 6.3 g/dL (6.3-8.2)
[2018-11-04 23:54] LABS: Appearance,Urine Cloudy (Clear); Bilirubin,Urine Negative (Negative); Blood,Urine Negative (Negative); Color,Urine Yellow; Glucose,Urine (UA) Negative (Negative); Ketones,Urine 1+ (Negative); Leukocyte Esterase,Urine Negative (Negative); Mucus,Urine Moderate /hpf; Nitrite,Urine Negative (Negative); PH, Urine 6.5 (5.0-8.0); Protein,Urine Trace (Negative); Specific Gravity,Urine 1.025 (1.001-1.035); Squamous Epithelial Cell,Urine 4 /hpf (0-4)
[2018-11-05 01:23] VITALS: BP 110/65; PULSE 60; RESP 16
== END 2018-11-05 01:41 | disposition home or self-care (01) ==
LOC: EC 22:09
DX: R11.2 Nausea with vomiting, unspecified (principal); R19.7 Diarrhea, unspecified; J44.9 Chronic obstructive pulmonary disease, unspecified; F31.9 Bipolar disorder, unspecified; F41.9 Anxiety disorder, unspecified; Z87.891 Personal history of nicotine dependence; Z79.899 Other long term (current) drug therapy; Z90.49 Acquired absence of other specified parts of digestive tract
CPT/HCPCS: 36415; 80053; 83690; 83735; 85025; 81001; 81025; 99284; 96374; 96375; 96361 ×3; J2405

== ENCOUNTER → 2019-04-13 | Outpatient (CLI) | payer OTHER ==
[2019-04-13 11:53] LABS: Basophils % (A) 1 %; Eosinophils # (A) 0.1 k/uL (0-0.7); Eosinophils % (A) 2 %; HCT 38.4 % (34.0-46.0); HGB 12.7 gm/dL (11.4-16.0); Lymphocytes # (A) 1.7 k/uL (1.0-4.8); Lymphocytes % (A) 24 %; MCH 29.1 pg (25.0-35.0); Mean Platelet Volume 8.6; Monocytes # (A) 0.4 k/uL (0-1.0); Monocytes % (A) 5 %; Neutrophils # (A) 4.9 k/uL (1.3-7.7); Neutrophils % (A) 67 %; Platelet Count 270 k/uL (150-450); RBC 4.37 m/uL (3.80-5.40); RDW 12.5 % (11.5-15.5); WBC 7.3 k/uL (3.8-10.6)
[2019-04-13 18:26] LABS: ALT 19 U/L (8-44); AST 25 U/L (13-35); African American GFR (CKD) 118.8 (60.0-200.0); Albumin/Globulin Ratio 2.32 (1.60-3.17); Alkaline Phosphatase 58 U/L (41-126); BUN/Creat Ratio 13.75 Ratio (12.00-20.00); Bilirubin, Conjugated <0.20 mg/dL (0.20-0.40); Carbon Dioxide 25.6 mmol/L (21.6-31.8); Chloride 106 mmol/L (96-109); Chol/HDL Ratio 3.89; Cholesterol 148 mg/dL (0-200); Globulin 1.9 g/dL (1.6-3.3); Glucose 101 mg/dL (70-110); LDL Cholesterol,Calculated 92.6 mg/dL (0.0-131.0); Non-African American GFR(CKD) 102.5 (60.0-200.0); Potassium 3.6 mmol/L (3.5-5.5); Sodium 139 mmol/L (135-145); Total Bilirubin 0.3 mg/dL (0.2-1.2); Total Protein 6.3 g/dL (6.2-8.2)
[2019-04-13 18:31] LABS: Hemoglobin A1C 5.3 % (4.0-6.0)
[2019-04-13 18:44] LABS: Folate, Serum >24.0 ng/mL
== END | disposition home or self-care (01) ==
LOC: LABWHC1 11:14
PROVIDERS: ATTEND Clinical Nurse Specialist Psychiatric/Mental Health
DX: F31.9 Bipolar disorder, unspecified (principal)
CPT/HCPCS: 36415; 80053; 80061; 82248; 82306; 82746; 83036; 84439; 84443; 84479; 85025

== ENCOUNTER 2019-11-21 15:55 | Outpatient (CLI) | payer OTHER ==
[2019-11-21 17:21] LABS: Basophils % (A) 0 %; Eosinophils # (A) 0.2 k/uL (0-0.7); Eosinophils % (A) 2 %; HCT 32.3 % (34.0-46.0); HGB 10.5 gm/dL (11.4-16.0); Lymphocytes # (A) 1.8 k/uL (1.0-4.8); Lymphocytes % (A) 15 %; MCH 27.9 pg (25.0-35.0); MCHC 32.4 g/dL (31.0-37.0); MCV 86.2 fL (80.0-100.0); Mean Platelet Volume 8.4; Monocytes # (A) 0.7 k/uL (0-1.0); Monocytes % (A) 6 %; Neutrophils # (A) 9.6 k/uL (1.3-7.7); Neutrophils % (A) 76 %; Platelet Count 272 k/uL (150-450); RBC 3.75 m/uL (3.80-5.40); RDW 13.6 % (11.5-15.5); WBC 12.6 k/uL (3.8-10.6)
[2019-11-21 17:28] LABS: Appearance,Urine Clear (Clear); Bilirubin,Urine Negative (Negative); Blood,Urine Negative (Negative); Color,Urine Yellow; Glucose,Urine (UA) Negative (Negative); Ketones,Urine Trace (Negative); Leukocyte Esterase,Urine Trace (Negative); Mucus,Urine Moderate /hpf; Nitrite,Urine Negative (Negative); PH, Urine 5.5 (5.0-8.0); Protein,Urine 1+ (Negative); RBC,Urine 1 /hpf (0-5); Specific Gravity,Urine 1.026 (1.001-1.035); Squamous Epithelial Cell,Urine 4 /hpf (0-4); Urobilinogen,Urine <2.0 mg/dL (<2.0); WBC,Urine 2 /hpf (0-5)
[2019-11-21 17:33] LABS: ALT 9 U/L (4-34); AST 18 U/L (14-36); African American GFR (CKD) >90 (>60 ml/min/1.73 sqM); Blood Urea Nitrogen 7 mg/dL (7-17); LDH 408 U/L (313-618); Non-African American GFR(CKD) >90 (>60 ml/min/1.73 sqM); Uric Acid 4.8 mg/dL (3.7-7.4)
[2019-11-21 17:46] LABS: Protein/Creatinine Ratio,Urine 0.07
[2019-11-21 17:52] VITALS: BP 134/85; PULSE 93; RESP 18; TEMP 97.6
--- NOTE | 2019-12-05 12:14 | P.MSEPDOC ---
Presenting Problems - Arrival Data Date of Arrival on Unit: 11/21/19 Time of Arrival on Unit: 15:55 Mode of Transport: Ambulatory - Complaint OB-Reason for Admission/Chief Complaint: PIH Comment: pt c/o swelling in face hands and right leg, pain behind her eyes, occassional nausea, pain in right leg, occassional feeling of heart racing Medical History - Information : 2 Para: 1 Term: 0 : 1 Abortions: Spontaneous or Elective: 0 Number of Living Children: 1 - Gestational Age Gestational Age by TONE (wks/days): 36 Weeks and 5 Days - History Complications: Prior Review of Systems - Review of Systems Constitutional: No problems Breast: No problems ENT: No problems Cardiovascular: No problems Respiratory: No problems Gastrointestinal: No problems Genitourinary: No problems Musculoskeletal: No problems Neurological: No problems Skin: No problems Vital Signs - Temperature Temperature: 97.6 F Temperature Source: Temporal Artery Scan - Pulse Right Brachial Pulse Rate: 93 Pulse Assessment Method: Automatic Cuff - Respirations Respiratory Rate: 18 Oxygen Delivery Method: Room Air - Blood Pressure Right Arm Blood Pressure: 134/85 Blood Pressure Mean: 101 Blood Pressure Source: Automatic Cuff Medical Screen Scoring (Pre) - Cervical Exam Dilation: Exam Deferred Effacement: Exam Deferred Membranes: Intact - Uterine Contractions Frequency: > 5 minutes apart = 1 Duration: N/A Intensity: N/A - Maternal Vital Signs Maternal Temperature: N/A Maternal Blood Pressure: N/A Signs of Preeclampsia: N/A Maternal Respirations: N/A - Maternal Trauma Maternal Trauma: N/A - Assessment - Baby A Baseline FHR: 130 Heart Rate - NICHD Category: Category I (Normal) = 0 NST: Reactive Position: N/A Station: N/A - Total Score - Baby A Total Score - Baby A: 1 - Total Score - Baby B Total Score - Baby B: 1 - Total Score - Baby C Total Score - Baby C: 1 - Level of Risk - Baby A Level of Risk - Baby A: Low (0-5) - Level of Risk - Baby B Level of Risk - Baby B: Low (0-5) - Level of Risk - Baby C Level of Risk - Baby C: Low (0-5) Physician Notification (Pre) - Physician Notified Physician Notified Date: 11/21/19 Physician Notified Time: 16:48 New Order Received: Yes - Notification Comment Comment: orders to obtain PIH labs Medical Screen Scoring (Post) - Cervical Exam Dilation: Exam Deferred Effacement: Exam Deferred Membranes: Intact - Uterine Contractions Frequency: > 5 minutes apart = 1 Duration: N/A Intensity: N/A - Maternal Vital Signs Maternal Temperature: N/A Signs of Preeclampsia: N/A Maternal Respirations: N/A - Maternal Trauma Maternal Trauma: N/A - Total Score Total Score - Baby A: 1 Total Score - Baby B: 1 Total Score - Baby C: 1 - Post Treatment Level of Risk Post Treatment Level of Risk - Baby A: Low (0-5) Post Treatment Level of Risk - Baby B: Low (0-5) Post Treatment Level of Risk - Baby C: Low (0-5) Physician Notification (Post) - Physician Notified Physician Notified Date: 11/21/19 Physician Notified Time: 17:51 Physician/Practitioner Notified:: Spoke With: Dr. Belle New Order Received: Yes - Notification Comment Comment: labs results given, orders to discharge pt home and increase oral fluids, pt has appt with Dr. Schmid tomorrow Disposition - Disposition OB Disposition: Triage, Discharge to home, Written follow up instructions reviewed Discharge Date: 11/21/19 Discharge Time: 18:00 I agree with the RN Medical Screening Exam: Yes Risk & Benefit of care provided described in d/c instruction: Yes Diagnosis: RELATED CONDITIONS, UNSPECIFIED, THIRD TRIMESTER
== END 2019-11-21 18:00 | disposition home or self-care (01) ==
LOC: FBPOP 15:55
PROVIDERS: ATTEND Obstetrics & Gynecology
DX: O26.93 Pregnancy related conditions, unspecified, third trimester (principal); Z3A.36 36 weeks gestation of pregnancy
CPT/HCPCS: 59025; 82570; 84156; 82565; 83615; 84450; 84460; 84520; 84550; 85025; 81001; G0463; 99215

== ENCOUNTER 2019-12-02 18:53 | Outpatient (CLI) | payer OTHER ==
[2019-12-02 21:29] VITALS: BP 129/76; PULSE 78; RESP 16; TEMP 97.3
--- NOTE | 2019-12-02 21:38 | P.MSEPDOC ---
Presenting Problems - Arrival Data Date of Arrival on Unit: 12/02/19 Time of Arrival on Unit: 18:54 Mode of Transport: Ambulatory - Complaint OB-Reason for Admission/Chief Complaint: Possible Onset of Labor Comment: lower back pain and abd pain Medical History - Information : 2 Para: 1 Term: 0 : 1 Abortions: Spontaneous or Elective: 0 Number of Living Children: 1 - Gestational Age Gestational Age by TONE (wks/days): 38 Weeks and 2 Days - History Complications: Prior , Prior Review of Systems - Review of Systems Constitutional: No problems Breast: No problems ENT: No problems Cardiovascular: No problems Respiratory: No problems Gastrointestinal: No problems Genitourinary: No problems Musculoskeletal: No problems Neurological: No problems Skin: No problems Vital Signs - Temperature Temperature: 97.3 F Temperature Source: Temporal Artery Scan - Pulse Right Brachial Pulse Rate: 78 Pulse Assessment Method: Automatic Cuff - Respirations Respiratory Rate: 16 Oxygen Delivery Method: Room Air O2 Sat by Pulse Oximetry: 100 - Blood Pressure Right Arm Sitting Blood Pressure: 129/76 Blood Pressure Mean: 93 Blood Pressure Source: Automatic Cuff Medical Screen Scoring (Pre) - Cervical Exam Dilation: 1-3 cm = 1 Membranes: Intact - Uterine Contractions Frequency: Scheduled / = 6 Duration: > 40 seconds = 2 Intensity: N/A - Maternal Vital Signs Maternal Temperature: N/A Maternal Blood Pressure: N/A Signs of Preeclampsia: N/A Maternal Respirations: N/A - Maternal Trauma Maternal Trauma: N/A - Assessment - Baby A Baseline FHR: 125 Heart Rate - NICHD Category: Category I (Normal) = 0 NST: Reactive Position: N/A Station: N/A - Total Score - Baby A Total Score - Baby A: 9 - Total Score - Baby B Total Score - Baby B: 9 - Total Score - Baby C Total Score - Baby C: 9 - Level of Risk - Baby A Level of Risk - Baby A: Medium (6-9) - Level of Risk - Baby B Level of Risk - Baby B: Medium (6-9) - Level of Risk - Baby C Level of Risk - Baby C: Medium (6-9) Physician Notification (Pre) - Physician Notified Physician Notified Date: 12/02/19 Physician Notified Time: 20:05 New Order Received: Yes (d/c if no cervical change and fhts wnl) - Notification Comment Comment: no cervical change, no bleeding, fhts Category 1 Disposition - Disposition OB Disposition: Triage, Discharge to home Discharge Date: 12/02/19 Discharge Time: 20:52 I agree with the RN Medical Screening Exam: Yes Risk & Benefit of care provided described in d/c instruction: Yes Diagnosis: FALSE LABOR AT OR AFTER 37 COMPLETED WEEKS OF GESTATION (Patient pr esents to triage with complaints of low back and pelvic pain. This appears to have been going on for at least the last month of her . FHTs are reassuring (Cat I) without decels. monitor shows only uterine irritability, no regular contractions. Cervix on serial exams shows no change (less dilated than in the office). Evaluation does not show any evidence of maternal/ compromise. Patient has appt in less than 24hr (tommorow at 2:[address] Schmid). Instructed to keep this appointment. Patient to return if any regular painful contractions, vaginal bleeding, decreased movement, leaking of fluid, or other concerns.)
== END 2019-12-02 20:52 | disposition home or self-care (01) ==
LOC: FBPOP 18:53
PROVIDERS: ATTEND Obstetrics & Gynecology
DX: O47.1 False labor at or after 37 completed weeks of gestation (principal); Z3A.38 38 weeks gestation of pregnancy
CPT/HCPCS: 59025; G0463; 99213

== ENCOUNTER 2019-12-09 05:55 | Inpatient (IN) | payer OTHER ==
[2019-12-05 15:27] VITALS: BMI 37.0
[2019-12-09] MEDS ORDERED: CITRIC ACID-SODIUM CITRATE 15 ML CUP PO ONE (06:15)
[2019-12-09] MEDS: LACTATED RINGERS 1,000 ML IV SCH (06:30)
[2019-12-09 07:43] LABS: Basophils % (A) 0 %; Eosinophils # (A) 0.2 k/uL (0-0.7); Eosinophils % (A) 2 %; HCT 30.4 % (34.0-46.0); HGB 10.3 gm/dL (11.4-16.0); Lymphocytes # (A) 1.9 k/uL (1.0-4.8); Lymphocytes % (A) 16 %; MCH 28.7 pg (25.0-35.0); MCHC 33.9 g/dL (31.0-37.0); MCV 84.8 fL (80.0-100.0); Monocytes # (A) 0.7 k/uL (0-1.0); Monocytes % (A) 6 %; Neutrophils % (A) 74 %; Platelet Count 260 k/uL (150-450); RBC 3.59 m/uL (3.80-5.40); RDW 14.5 % (11.5-15.5)
[2019-12-09] MEDS ORDERED: ONDANSETRON 4 MG/2 ML VIAL ONE (07:50)
[2019-12-09] MEDS ORDERED: OXYTOCIN 10 UNIT/ML 1 ML VIAL ONE (07:50)
[2019-12-09] MEDS ORDERED: MORPHINE SULFATE (PF) 0.3 MG/0.3 ML SYR ONE (07:50)
[2019-12-09] MEDS ORDERED: DEXAMETHASONE SOD PHOSPHATE 4 MG/ML 1 ML VIAL ONE (07:50)
[2019-12-09] MEDS ORDERED: KETOROLAC 30 MG/ML 1 ML VIAL ONE (07:50)
--- NOTE | 2019-12-09 08:31 | P.HPOB ---
History of Present Illness H&P Date: 12/09/19 Chief Complaint: Repeat low transverse 24-year-old presents at 39 weeks and 2 days for repeat low transverse C- section. Review of Systems All systems: negative Constitutional: Denies chills, Denies fever Eyes: denies blurred vision, denies pain Ears, nose, mouth and throat: Denies headache, Denies sore throat Cardiovascular: Denies chest pain, Denies shortness of breath Respiratory: Denies cough Gastrointestinal: Denies abdominal pain, Denies diarrhea, Denies nausea, Denies vomiting Genitourinary: Denies dysuria, Denies hematuria Musculoskeletal: Denies myalgias Integumentary: Denies pruritus, Denies rash Neurological: Denies numbness, Denies weakness Psychiatric: Denies anxiety, Denies depression Endocrine: Denies fatigue, Denies weight change Past Medical History Past Medical History: Asthma, COPD Additional Past Medical History / Comment(s): Obstetrical history: She's had one previous section . This is her second she's had care with me since first trimester. Blood type is O+, hepatitis, rubella immune, RPR nonreactive, hepatitis B-. History of Any Multi-Drug Resistant Organisms: None Reported Past Surgical History: Appendectomy, Section, Cholecystectomy Additional Past Surgical History / Comment(s): C-S Past Anesthesia/Blood Transfusion Reactions: No Reported Reaction Past Psychological History: Anxiety, Bipolar Smoking Status: Former smoker Past Alcohol Use History: None Reported Additional Past Alcohol Use History / Comment(s): Began Smoking age 10, 1/2 ppd est, quit 2019. Past Drug Use History: Marijuana Additional Drug Use History / Comment(s): Hx smoking 2 cigarettes per day; no current marijuana use during x9 months. - Past Family History Father Family Medical History: Congestive Heart Failure (CHF), Myocardial Infarction ([place]) Medications and Allergies Home Medications Medication Instructions Recorded Confirmed Type Albuterol Inhaler (Mhu) [Ventolin 2 puff INHALATION ONCE PRN 10/28/18 12/09/19 History Hfa Inhaler] FLUoxetine HCL [PROzac] 20 mg PO DAILY 11/21/19 12/09/19 History Pnv No.95/Ferrous Fum/Folic AC 1 each PO DAILY 11/21/19 12/09/19 History [ Multivitamin Tablet] lamoTRIgine [LaMICtal] 150 mg PO BID 11/21/19 12/09/19 History Allergies Allergy/AdvReac Type Severity Reaction Status Date / Time No Known Allergies Allergy Verified 12/09/19 06:13 Exam Osteopathic Statement: *. No significant issues noted on an osteopathic structural exam other than those noted in the History and Physical/Consult. Vital Signs Temp Pulse Resp BP Pulse Ox 12/09/19 06:18 98.2 F 81 16 127/79 99 Intake and Output 12/08/19 12/09/19 12/09/19 22:59 06:59 14:59 Other: Weight 86.183 kg Heart: Regular rate and rhythm Lungs: Clear to auscultation bilaterally Abdomen: Soft, nontender Extremities: Negative Homans sign Results Result Diagrams: 12/09/19 07: Abnormal Lab Results - Last 24 Hours (Table) 12/09/19 Range/Units 07:20 WBC 12.0 H (3.8-10.6) k/uL RBC 3.59 L (3.80-5.40) m/uL Hgb 10.3 L (11.4-16.0) gm/dL Hct 30.4 L (34.0-46.0) % Neutrophils # 9.0 H (1.3-7.7) k/uL Assessment and Plan (1) 39 weeks gestation of Current Visit: Yes Status: Acute Code(s): Z3A.39 - 39 WEEKS GESTATION OF PRE GNANCY SNOMED Code(s): 75770106 (2) Previous section Current Visit: Yes Status: Acute Code(s): Z98.891 - HISTORY OF UTERINE SCAR FROM PREVIOUS SURGERY SNOMED Code(s): 365790206 Plan: 1. Repeat low transverse
[2019-12-09] MEDS ORDERED: diphenhydrAMINE 50 MG/ML 1 ML VIAL IVP PRN ×2 (08:34)
[2019-12-09] MEDS ORDERED: diphenhydrAMINE 25 MG CAP PO PRN (08:34)
[2019-12-09] MEDS ORDERED: diphenhydrAMINE 50 MG CAP PO PRN (08:34)
[2019-12-09] MEDS ORDERED: NALOXONE 0.4 MG/ML 1 ML VIAL IV PRN ×2 (08:34→08:40)
[2019-12-09] MEDS ORDERED: ZOLPIDEM 5 MG TAB PO PRN (08:34)
[2019-12-09] MEDS ORDERED: METOCLOPRAMIDE 5 MG/ML 2 ML VIAL IVP PRN (08:34)
[2019-12-09] MEDS ORDERED: KETOROLAC 30 MG/ML 1 ML VIAL IVP PRN (08:34)
[2019-12-09] MEDS ORDERED: ACETAMINOPHEN TAB 325 MG TAB PO PRN (08:34)
[2019-12-09] MEDS ORDERED: ONDANSETRON 4 MG/2 ML VIAL IVP PRN (08:34)
[2019-12-09] MEDS ORDERED: SIMETHICONE 80 MG CHEWABLE PO PRN (08:34)
--- NOTE | 2019-12-09 08:34 | P.OP ---
Date of Procedure: 12/09/19 Preoperative Diagnosis: 1. at 39 weeks and 2 days 2. Previous section Postoperative Diagnosis: 1. at 39 weeks and 2 days 2. Previous section Procedure(s) Performed: Repeat low transverse Anesthesia: spinal Surgeon: Dee Schmid Scrap Iron Cutter #1: Jason Saavedra Estimated Blood Loss (ml): 500 IV fluids (ml): 500 Urine output (ml): 300 Pathology: none sent Condition: stable Disposition: floor Operative Findings: Normal uterus, tubes, ovaries. Viable female, Apgars 9, 9, weight 7 lbs. 9 oz. Description of Procedure: Patient was taken to the operating room where spinal anesthesia was found be adequate. She was prepped and draped in normal sterile fashion in dorsal supine position with a leftward tilt. Pfannenstiel skin incision was made the scalpel and carried through to the underlying layer of fascia with the scalpel. Fascia was incised in midline and carried bilaterally with the Martinez scissors. The superior aspect of the fascial incision was grasped with [place] clamps elevated and the underlying rectus muscles dissected off with the Martinez's. Attention was then turned to inferior aspect of same incision which in a similar fashion was grasped tented up and the underlying rectus muscles dissected off with the Martinez's. The rectus muscles were the midline and the peritoneum was identified tented up and entered sharply with the scalpel. The incision was extended superiorly and inferiorly with good visualization of the bladder; of note were some omental adhesions to the peritoneum on the upper abdominal wall. The bladder blade was inserted and the vesicouterine peritoneum was incised the Metzenbaums then carried bilaterally and bladder flap created digitally. A low transverse incision was then made on the uterus with the scalpel. This was carried bilaterally and digital manner. Infant's head delivered atraumatically, nose and mouth bulb suctioned, cord clamped and cut, infant handed off to [facility] nurses. Apgars 9,9, weight 7 lbs. 9 oz. Placenta delivered manually, intact with three-vessel cord. The uterus is exteriorized and cleared of all clots and debris. The uterine incision was closed with 0 Vicryl in a running locked fashion. Second layer of the same sutures used in imbricating fashion to obtain excellent hemostasis. Both ovaries and tubes appeared normal. The uterus was placed back into the abdomen. The peritoneum was reapproximated using 2-0 Vicryl in a running fashion. The muscles were reapproximated using 2-0 Vicryl in interrupted fashion. The fascia was reapproximated using 0 Vicryl in a running fashion. The subcutaneous tissues closed with 3-0 Vicryl running fashion. The skin was closed gela. Patient tolerated the procedure well, sponge and instrument counts were correct times 2 and she was taken to the recovery room in stable condition.
[2019-12-09] MEDS ORDERED: HYDROmorphone 0.5 MG/0.5 ML SYRINGE IVP PRN (08:40)
[2019-12-09] MEDS ORDERED: OXYTOCIN 20 UNITS/1000 ML NS 1,000 ML IV SCH (08:45)
[2019-12-09] MEDS: SENNOSIDES-DOCUSATE SODIUM 1 EACH TAB PO SCH (20:19)
[2019-12-10] MEDS: HYDROcodone/APAP 7.5-325MG 1 EACH TAB PO PRN ×3 (01:46→23:34)
[2019-12-10 05:47] LABS: Basophils % (A) 0 %; Eosinophils # (A) 0.1 k/uL (0-0.7); Eosinophils % (A) 1 %; HCT 26.3 % (34.0-46.0); Lymphocytes # (A) 2.4 k/uL (1.0-4.8); Lymphocytes % (A) 16 %; MCH 27.9 pg (25.0-35.0); MCHC 32.8 g/dL (31.0-37.0); MCV 85.1 fL (80.0-100.0); Mean Platelet Volume 9.2; Monocytes % (A) 6 %; Neutrophils # (A) 11.1 k/uL (1.3-7.7); Neutrophils % (A) 74 %; Platelet Count 224 k/uL (150-450); RBC 3.09 m/uL (3.80-5.40); RDW 14.4 % (11.5-15.5); WBC 14.9 k/uL (3.8-10.6)
[2019-12-10 05:51] LABS: HGB 8.6 gm/dL (11.4-16.0)
--- NOTE | 2019-12-10 05:57 | P.PN ---
Progress Note - Text Progress Note Date: 12/10/19 Postoperative day 1 status post section under spinal anesthesia, and intrathecal morphine given for postoperative analgesia, patient doing well, there is a anesthesia related competitions. Patient had no headache, vital signs stable Assessment and plan = postop day 1 status post , doing well there is no anesthesia related complication
[2019-12-10] MEDS: IBUPROFEN 600 MG TAB PO PRN ×2 (07:36→15:52)
--- NOTE | 2019-12-10 13:06 | P.PNOBGPC ---
Subjective - Subjective Principal diagnosis: S/P RLTCS POD #1 Interval history: Pt seen and examined. Feeling well. Pain controlled. Denies N/V, F/C, CP, SOB or calf pain. Patient reports: Reports appetite normal, Reports voiding normally, Reports pain well controlled, Reports ambulating normally Sasser: doing well Objective - Vital Signs Latest vital signs: Vital Signs Temp Pulse Resp BP Pulse Ox 12/10/19 11:00 16 12/10/19 09:00 16 12/10/19 07:00 98.1 F 91 16 118/71 99 12/10/19 04:00 98.2 F 84 16 114/72 98 12/10/19 02:08 16 98 12/10/19 00:20 16 98 12/10/19 00:00 97.8 F 87 16 117/79 98 12/09/19 23:00 16 12/09/19 20:19 16 98 12/09/19 20:00 97.4 F L 64 16 137/79 98 12/09/19 19:00 16 98 12/09/19 16:34 99 12/09/19 16:00 98.0 F 81 16 143/88 99 12/09/19 15:00 16 12/09/19 13:40 99 Intake and Output 12/09/19 12/10/19 12/10/19 22:59 06:59 14:59 Output Total 1500 Balance -1500 Output: Urine 1500 Other: Voiding Method Toilet # Voids 3 1 - Exam Lungs: bilateral: normal Chest: Normal S1, Normal S2 Extremities: Present: normal Abdomen: Present: normal appearance, soft. Absent: distention, tenderness Incision: Present: normal, dry, intact Uterus: Present: normal, firm - Labs Labs: Abnormal Lab Results - Last 24 Hours (Table) 12/10/19 Range/Units 05:35 WBC 14.9 H (3.8-10.6) k/uL RBC 3.09 L (3.80-5.40) m/uL Hgb 8.6 L D (11.4-16.0) gm/dL Hct 26.3 L (34.0-46.0) % Neutrophils # 11.1 H (1.3-7.7) k/uL Assessment and Plan (1) 39 weeks gestation of Current Visit: Yes Status: Resolved Code(s): Z3A.39 - 39 WEEKS GESTATION OF SNOMED Code(s): 96813519 (2) Previous section Current Visit: Yes Status: Resolved Code(s): Z98.891 - HISTORY OF UTERINE SCAR FROM PREVIOUS SURGERY SNOMED Code(s): 679733900 (3) S/P repeat low transverse Current Visit: Yes Status: Acute Code(s): Z98.891 - HISTORY OF UTERINE SCAR FROM PREVIOUS SURGERY SNOMED Code(s): 604636084 Plan: 1. increase ambulation 2. reg diet 3. po pain meds
[2019-12-10] MEDS: SENNOSIDES-DOCUSATE SODIUM 1 EACH TAB PO SCH (18:03)
[2019-12-11] MEDS: IBUPROFEN 600 MG TAB PO PRN (05:14)
[2019-12-11] MEDS: SENNOSIDES-DOCUSATE SODIUM 1 EACH TAB PO SCH ×2 (05:15→12:22)
[2019-12-11] MEDS: LACTATED RINGERS 1,000 ML IV SCH ×2 (05:15→05:16)
--- NOTE | 2019-12-11 08:10 | P.DS ---
Providers Date of admission: 12/09/19 05:55 Expected date of discharge: 12/11/19 Attending physician: Dee Schmid Primary care physician: Stated None - Discharge Diagnosis(es) (1) 39 weeks gestation of Current Visit: Yes Status: Resolved (2) Previous section Current Visit: Yes Status: Resolved (3) S/P repeat low transverse Current Visit: Yes Status: Acute Hospital Course: Patient presented for repeat low transverse . She underwent this procedure without complication. Postoperatively she is voiding and ambulating without difficulty, tolerating regular diet and passing flatus. She'll be discharged home post operative day #2 in stable condition to follow-up with me in one week. Plan - Discharge Summary Discharge Rx Participant: No New Discharge Prescriptions: New Ibuprofen [Motrin] 600 mg PO Q6HR PRN #30 tab PRN Reason: Mild Pain Or Fever >= 100.5 HYDROcodone/APAP 7.5-325MG [M[place] 7.5-325] 1 each PO Q6H PRN #12 tab PRN Reason: Severe Pain No Action Albuterol Inhaler (Mhu) [Ventolin Hfa Inhaler] 2 puff INHALATION ONCE PRN PRN Reason: Shortness Of Breath FLUoxetine HCL [PROzac] 20 mg PO DAILY lamoTRIgine [LaMICtal] 150 mg PO BID Pnv No.95/Ferrous Fum/Folic AC [ Multivitamin Tablet] 1 each PO DAILY Discharge Medication List Albuterol Inhaler (Mhu) [Ventolin Hfa Inhaler] 2 puff INHALATION ONCE PRN 10/28/18 [History] FLUoxetine HCL [PROzac] 20 mg PO DAILY 11/21/19 [History] Pnv No.95/Ferrous Fum/Folic AC [ Multivitamin Tablet] 1 each PO DAILY 11/21/19 [History] lamoTRIgine [LaMICtal] 150 mg PO BID 11/21/19 [History] HYDROcodone/APAP 7.5-325MG [[place] 7.5-325] 1 each PO Q6H PRN #12 tab 12/11/19 [Rx] Ibuprofen [Motrin] 600 mg PO Q6HR PRN #30 tab 12/11/19 [Rx] Follow up Appointment(s)/Referral(s): Dee Schmid DO [Doctor of Osteopathic Medicine] - 1 Week Discharge Disposition: HOME SELF-CARE
[2019-12-11 08:42] VITALS: BP 121/65; PULSE 63; RESP 18; TEMP 98.1
== END 2019-12-11 11:45 | disposition home or self-care (01) | DRG 788 ==
LOC: 4FBP 05:55
PROVIDERS: ADMIT Obstetrics & Gynecology; ATTEND Obstetrics & Gynecology
PROC: 10D00Z1 Extraction of Products of Conception, Low, Open Approach (ICD-10-PCS; principal; 2019-12-09 08:00)
DX: O34.211 Maternal care for low transverse scar from previous cesarean delivery (principal); O99.52 Diseases of the respiratory system complicating childbirth; J44.9 Chronic obstructive pulmonary disease, unspecified; O99.344 Other mental disorders complicating childbirth; F41.9 Anxiety disorder, unspecified; F31.9 Bipolar disorder, unspecified; Z37.0 Single live birth; Z3A.39 39 weeks gestation of pregnancy; Z79.899 Other long term (current) drug therapy; Z87.891 Personal history of nicotine dependence; Z90.49 Acquired absence of other specified parts of digestive tract; Z82.49 Family history of ischemic heart disease and other diseases of the circulatory system
CPT/HCPCS: 85025; 86850; 86900; 86901

== ENCOUNTER 2020-04-17 12:40 | Emergency (ER) | payer OTHER ==
[2020-04-17 12:45] VITALS: BP 148/92; PULSE 74; RESP 20; TEMP 99
--- NOTE | 2020-04-17 12:52 | ED ---
Upper Extremity HPI - General Chief Complaint: Extremity Injury, Upper Stated Complaint: hand injury Time Seen by Provider: 04/17/20 12:46 Source: patient, RN notes reviewed Mode of arrival: ambulatory Limitations: no limitations - History of Present Illness Initial Comments: This a 24-year-old female presents emergency Department chief complaint left blue nd injury. Patient states that her hand got close in her house door. Patient has a small abrasion, pain and swelling. She is up-to-date on her tetanus. She is [id number]-[id number]. She is in no pain proximal to her fingers. No paresthesias - Related Data Home Medications Medication Instructions Recorded Confirmed Albuterol Inhaler (Mhu) [Ventolin 2 puff INHALATION ONCE PRN 10/28/18 12/09/19 Hfa Inhaler] FLUoxetine HCL [PROzac] 20 mg PO DAILY 11/21/19 12/09/19 Pnv No.95/Ferrous Fum/Folic AC 1 each PO DAILY 11/21/19 12/09/19 [ Multivitamin Tablet] lamoTRIgine [LaMICtal] 150 mg PO BID 11/21/19 12/09/19 Previous Rx's Medication Instructions Recorded HYDROcodone/APAP 7.5-325MG [[place] 1 each PO Q6H PRN #12 tab 12/11/19 7.5-325] Ibuprofen [Motrin] 600 mg PO Q6HR PRN #30 tab 12/11/19 Ibuprofen [Motrin] 600 mg PO Q8HR PRN #20 tab 04/17/20 Allergies Allergy/AdvReac Type Severity Reaction Status Date / Time No Known Allergies Allergy Verified 04/17/20 12:45 Review of Systems ROS Statement: Those systems with pertinent positive or pertinent negative responses have been documented in the HPI. ROS Other: All systems not noted in ROS Statement are negative. Past Medical History Past Medical History: Asthma, COPD Additional Past Medical History / Comment(s): Obstetrical history: She's had one previous section . This is her second she's had care with me since first trimester. Blood type is O+, hepatitis, rubella immune, RPR nonreactive, hepatitis B-. History of Any Multi-Drug Resistant Organisms: None Reported Past Surgical History: Appendectomy, Section, Cholecystectomy Additional Past Surgical History / Comment(s): C-S Past Anesthesia/Blood Transfusion Reactions: No Reported Reaction Past Psychological History: Anxiety, Bipolar Smoking Status: Former smoker Past Alcohol Use History: None Reported Past Drug Use History: Marijuana - Past Family History Father Family Medical History: Congestive Heart Failure (CHF), Myocardial Infarction ([place]) General Exam Limitations: no limitations General appearance: alert, in no apparent distress Head exam: Present: atraumatic, normocephalic, normal inspection Respiratory exam: Present: normal lung sounds bilaterally. Absent: respiratory distress, wheezes, rales, rhonchi, stridor Cardiovascular Exam: Present: regular rate, normal rhythm, normal heart sounds. Absent: systolic murmur, diastolic murmur, rubs, gallop, clicks Extremities exam: Present: other (Left hand there is a small abrasion over her fourth digit, there is moderate swelling, mild ecchymosis pain with palpation patient does have full range motion but reports increasing pain with range of motion no proximal hand tenderness) Skin exam: Present: warm, dry, intact, normal color. Absent: rash Course Vital Signs 04/17/20 12:43 Temperature 99.0 F Pulse Rate 74 Respiratory 20 Rate Blood Pressure 148/92 O2 Sat by Pulse 98 Oximetry Medical Decision Making - Medical Decision Making X-ray was reviewed no acute fracture. Patient has a right hand contusion, crush injury. Patient discharged in stable condition. Disposition Clinical Impression: Contusion of right hand, Crushing injury of right hand Disposition: HOME SELF-CARE Condition: Stable Instructions (If sedation given, give patient instructions): Hand Sprain (ED) Additional Instructions: Please return to the Emergency Department if symptoms worsen or any other concerns. Prescriptions: Ibuprofen [Motrin] 600 mg PO Q8HR PRN #20 tab PRN Reason: Pain Is patient prescribed a controlled substance at d/c from ED?: No Referrals: Felisha Goins MD [Primary Care Provider] - 1-2 days Time of Disposition: 13:06
[2020-04-17] MEDS ORDERED: ACET/COD 300 MG/30 MG STARTER PACK 6 TAB BTL PO STA (13:07)
--- NOTE | 2020-04-17 13:15 | XR ---
EXAMINATION TYPE: XR hand complete LT DATE OF EXAM: 04/17/2020 COMPARISON: None HISTORY: Pain TECHNIQUE: Three-view left hand FINDINGS: Mild soft tissue swelling over the proximal joint spaces are preserved. No acute fracture o r dislocation. Follow-up exams can be performed 7-10 days from acute trauma for continued pain. IMPRESSION: 1. No acute osseous abnormality
== END 2020-04-17 13:22 | disposition home or self-care (01) ==
LOC: EC 12:40
DX: S67.21XA Crushing injury of right hand, initial encounter (principal); S60.221A Contusion of right hand, initial encounter; S60.222A Contusion of left hand, initial encounter; J44.9 Chronic obstructive pulmonary disease, unspecified; F41.9 Anxiety disorder, unspecified; F31.9 Bipolar disorder, unspecified; Z79.899 Other long term (current) drug therapy; Z87.891 Personal history of nicotine dependence; W23.1XXA Caught, crushed, jammed, or pinched between stationary objects, initial encounter
CPT/HCPCS: 99283

== ENCOUNTER 2020-12-23 08:27 | Emergency (ER) | payer OTHER ==
[2020-12-23] MEDS ORDERED: KETOROLAC 15 MG/ML 1 ML VIAL IVP STA (08:59)
--- NOTE | 2020-12-23 09:12 | ED ---
Chest Pain HPI - General Chief Complaint: Chest Pain Stated Complaint: chest pain Time Seen by Provider: 12/23/20 08:43 Source: patient, family Mode of arrival: wheelchair Limitations: no limitations - History of Present Illness Initial Comments: Patient is a 25-year-old female presenting to the emergency Department with complaints of chest pain has been intermittent over the last 3 days. She states she is also having some shortness of breath, feels like she can't take and not a lot of air. She states when she does take in a deep breath it does hurt the front of her chest. She has not been coughing, no fevers or chills. He denies any falls or trauma. She has no history of blood clots, no recent travel, she is not improved control. She denies history of asthma. She was a former smoker, quit 2 years ago, does not vape. She denies any abdominal discomfort, no nausea or vomiting. She has no further complaints at this time. Her vitals are stable upon arrival. - Related Data Home Medications Medication Instructions Recorded Confirmed lamoTRIgine [LaMICtal] 150 mg PO DAILY 11/21/19 12/23/20 Dextroamphetamine/Amphetamine 20 mg PO BID 12/23/20 12/23/20 [Adderall] FLUoxetine HCL [PROzac] 40 mg PO DAILY 12/23/20 12/23/20 Medroxyprogesterone Acetate 150 mg IM Q84D 12/23/20 12/23/20 [Depo-Provera] Allergies Allergy/AdvReac Type Severity Reaction Status Date / Time No Known Allergies Allergy Verified 12/23/20 10:57 Review of Systems ROS Statement: Those systems with pertinent positive or pertinent negative responses have been documented in the HPI. ROS Other: All systems not noted in ROS Statement are negative. EKG Findings - EKG Comments: EKG Findings:: Normal sinus rhythm with sinus arrhythmia, no signs of acute ST segment elevation. Similar to previous on 10/28/2018. For ventricular rate 60, NJ interval 148, QTC 436. Past Medical History Past Medical History: Asthma, COPD Additional Past Medical History / Comment(s): Obstetrical history: She's had one previous section . This is her second she's had care with me since first trimester. Blood type is O+, hepatitis, rubella immune, RPR nonreactive, hepatitis B-. History of Any Multi-Drug Resistant Organisms: None Reported Past Surgical History: Appendectomy, Section, Cholecystectomy Additional Past Surgical History / Comment(s): C-S Past Anesthesia/Blood Transfusion Reactions: No Reported Reaction Past Psychological History: Anxiety, Bipolar Smoking Status: Former smoker Past Alcohol Use History: None Reported Past Drug Use History: Marijuana - Past Family History Father Family Medical History: Congestive Heart Failure (CHF), Myocardial Infarction ([place]) General Exam - General Exam Comments Initial Comments: GENERAL: Patient is well-developed and well-nourished. Patient is nontoxic and in no acute distress. HEAD: Atraumatic, normocephalic. EYES: Pupils equal round and reactive to light, extraocular movements intact, sclera anicteric, conjunctiva are normal. Eyelids were unremarkable. ENT: TMs normal, nares patent, oropharynx clear without exudates. Moist mucous membranes. NECK: Normal range of motion, supple without lymphadenopathy or JVD. LUNGS: Unlabored respirations. Breath sounds clear to auscultation bilaterally and equal. No wheezes rales or rhonchi. HEART: Regular rate and rhythm without murmurs, rubs or gallops. ABDOMEN: Soft, nontender, normoactive bowel sounds. No guarding, no rebound. No masses appreciated. : Deferred MUSCULOSKELETAL: Normal extremities with adequate strength and normal range of motion, no pitting or edema. No clubbing or cyanosis. She does have pain at palpation of the anterior chest wall and sternum area. Increases with deep inhalation. NEUROLOGICAL: Patient is alert and oriented x 3. Motor and sensory are also intact. Cranial nerves II through XII grossly intact. Symmetrical smile. Normal speech, normal gait. PSYCH: Normal mood, normal affect. SKIN: Warm, Dry, normal turgor, no rashes or lesions noted. Limitations: no limitations Course Vital Signs 12/23/20 08:36 Temperature 97.6 F Pulse Rate 65 Respiratory 18 Rate Blood Pressure 111/75 O2 Sat by Pulse 99 Oximetry Chest Pain [facility] Patient is a 25-year-old female here with intermittent chest pains over the past 3-4 days. No coughing, no fever, no falls or trauma. EKG revealed normal sinus rhythm. I did check basic labs, d-dimer and troponin are both negative as well as the rest of her labs. Chest x-ray showed no acute process. Given patient's pain with palpation of the chest wall and sternum and pain that increases with deep inhalation, I think this is most likely costochondritis. I discussed this with her. I did give her some Toradol here today which did improve her symptoms. I recommend continuing with anti-inflammatory such as ibuprofen or Aleve for discomfort. She can follow-up with her family doctor. She is agreeable to this plan of care and is stable for discharge. Return parameters were discussed with her and she verbalized understanding. Case discussed with Dr. Olvera. Disposition Clinical Impression: Atypical chest pain, Costochondritis Disposition: HOME SELF-CARE Condition: Stable Instructions (If sedation given, give patient instructions): Costochondritis (ED) Additional Instructions: Please return to the Emergency Department if symptoms worsen or any other concerns. Please use anti-inflammatories such as ibuprofen or Aleve for the next few days. May also use heat and/or ice to the area. Please follow-up with your primary care physician. Is patient prescribed a controlled substance at d/c from ED?: No Referrals: Felisha Goins MD [Primary Care Provider] - 1-2 days Time of Disposition: 11:22
[2020-12-23 10:06] LABS: Basophils # (A) 0.1 k/uL (0-0.2); Basophils % (A) 1 %; Eosinophils # (A) 0.2 k/uL (0-0.7); Eosinophils % (A) 2 %; HCT 38.9 % (34.0-46.0); HGB 13.4 gm/dL (11.4-16.0); Lymphocytes # (A) 2.8 k/uL (1.0-4.8); Lymphocytes % (A) 30 %; MCH 31.4 pg (25.0-35.0); MCHC 34.4 g/dL (31.0-37.0); MCV 91.5 fL (80.0-100.0); Mean Platelet Volume 8.2; Monocytes # (A) 0.5 k/uL (0-1.0); Monocytes % (A) 6 %; Neutrophils # (A) 5.7 k/uL (1.3-7.7); Neutrophils % (A) 60 %; Platelet Count 314 k/uL (150-450); RBC 4.25 m/uL (3.80-5.40); RDW 14.3 % (11.5-15.5); WBC 9.4 k/uL (3.8-10.6)
--- NOTE | 2020-12-23 10:17 | XR ---
EXAMINATION TYPE: XR chest 2V DATE OF EXAM: 12/23/2020 COMPARISON: 10/28/2018 HISTORY: Chest pain TECHNIQUE: Frontal and lateral views of the chest are obtained. FINDINGS: There is no focal air space opacity. No evidence for pneumothorax. No pleural effusion. The cardiac silhouette size is within normal limits. The osseous structures are grossly intact. IMPRESSION: 1. No acute cardiopulmonary process.
[2020-12-23 10:32] LABS: ALT 34 U/L (4-34); AST 34 U/L (14-36); African American GFR (CKD) >90 (>60 ml/min/1.73 sqM); Albumin 4.3 g/dL (3.5-5.0); Alkaline Phosphatase 66 U/L (38-126); Anion Gap 9 mmol/L; Blood Urea Nitrogen 12 mg/dL (7-17); Calcium 9.6 mg/dL (8.4-10.2); Carbon Dioxide 26 mmol/L (22-30); Chloride 104 mmol/L (98-107); Glucose 108 mg/dL (74-99); Non-African American GFR(CKD) >90 (>60 ml/min/1.73 sqM); Potassium 4.1 mmol/L (3.5-5.1); Sodium 139 mmol/L (137-145); Total Bilirubin 0.1 mg/dL (0.2-1.3); Total Protein 7.4 g/dL (6.3-8.2)
[2020-12-23 11:39] VITALS: BP 128/75; PULSE 69; RESP 16; TEMP 97.4
== END 2020-12-23 11:37 | disposition home or self-care (01) ==
LOC: EC 08:27
DX: M94.0 Chondrocostal junction syndrome [Tietze] (principal); J45.909 Unspecified asthma, uncomplicated; F41.9 Anxiety disorder, unspecified; F31.9 Bipolar disorder, unspecified; F12.90 Cannabis use, unspecified, uncomplicated; Z90.49 Acquired absence of other specified parts of digestive tract; Z87.891 Personal history of nicotine dependence
CPT/HCPCS: 99285; 96374; 36415; 93005; 85379; 80053; 84484; 85025; 81025; 87635; 71046; J1885

== ENCOUNTER 2021-06-20 17:35 | Emergency (ER) | payer OTHER ==
[2021-06-20] MEDS ORDERED: ONDANSETRON 4 MG/2 ML VIAL IVP STA (17:52)
[2021-06-20] MEDS ORDERED: SODIUM CHLORIDE 0.9% 1,000 ML IV STA (17:52)
[2021-06-20] MEDS ORDERED: MORPHINE SULFATE 4 MG/ML SYRINGE IV STA (17:52)
--- NOTE | 2021-06-20 17:54 | ED ---
Chest Pain HPI - General Chief Complaint: Chest Pain Stated Complaint: chest pain, R arm pain Time Seen by Provider: 06/20/21 17:40 Source: patient, RN notes reviewed Mode of arrival: ambulatory Limitations: no limitations - History of Present Illness Initial Comments: This is a pleasant 25-year-old female who presents to the emergency department complaining of substernal chest pain which radiates to the right side of her chest and right arm. It started about 2 AM. Patient states the pain is sharp, constant, related to movement, patient states she also had a few episodes of vomiting after eating. However she denies any abdominal pain. No hematemesis or coffee-ground emesis. No shortness of breath. Depo-Provera j, but no estrogen related products. No previous history of blood clots. No recent surgeries. No recent immobilization. Patient is a cigarette smoker. No alcohol or drug abuse. No headache, no fever or chills, no changes in vision or hearing, no sore throat or difficulty with speech, no neck pain, no chest pain or shortness of breath, no abdominal pain, no nausea or vomiting, no changes in urination or bowel movements, no numbness or tingling, no extremity pain, no skin rashes or lesions. - Related Data Home Medications Medication Instructions Recorded Confirmed lamoTRIgine [LaMICtal] 150 mg PO DAILY 11/21/19 12/23/20 Dextroamphetamine/Amphetamine 20 mg PO BID 12/23/20 12/23/20 [Adderall] FLUoxetine HCL [PROzac] 40 mg PO DAILY 12/23/20 12/23/20 Medroxyprogesterone Acetate 150 mg IM Q84D 12/23/20 12/23/20 [Depo-Provera] Previous Rx's Medication Instructions Recorded Acetaminophen [Tylenol] 500 mg PO Q4-6H PRN #24 tab 06/20/21 Cyclobenzaprine [Flexeril] 10 mg PO TID PRN #20 tab 06/20/21 Naproxen [Naprosyn] 375 mg PO Q12HR PRN #20 tablet 06/20/21 Allergies Allergy/AdvReac Type Severity Reaction Status Date / Time No Known Allergies Allergy Verified 06/20/21 17:38 Review of Systems ROS Statement: Those systems with pertinent positive or pertinent negative responses have been documented in the HPI. ROS Other: All systems not noted in ROS Statement are negative. EKG Findings - EKG Results: EKG: sinus rhythm (Rate 70 with sinus arrhythmia), normal axis, normal QRS, normal ST/T, no acute changes, not changed from: (Not changed from 2020) Past Medical History Past Medical History: Asthma, COPD Additional Past Medical History / Comment(s): Obstetrical history: She's had one previous section . This is her second she's had care with me since first trimester. Blood type is O+, hepatitis, rubella immune, RPR nonreactive, hepatitis B-. History of Any Multi-Drug Resistant Organisms: None Reported Past Surgical History: Appendectomy, Section, Cholecystectomy Additional Past Surgical History / Comment(s): C-S Past Anesthesia/Blood Transfusion Reactions: No Reported Reaction Past Psychological History: Anxiety, Bipolar Smoking Status: Former smoker Past Alcohol Use History: None Reported Past Drug Use History: Marijuana - Past Family History Father Family Medical History: Congestive Heart Failure (CHF), Myocardial Infarction ([place]) General Exam - General Exam Comments Initial Comments: Mild distress. Chest wall tenderness. Cranial nerves II through XII grossly intact Limitations: no limitations General appearance: alert, in distress Head exam: Present: atraumatic, normocephalic, normal inspection Eye exam: Present: normal appearance, PERRL, EOMI. Absent: scleral icterus, conjunctival injection, periorbital swelling ENT exam: Present: normal exam, normal oropharynx, mucous membranes moist Neck exam: Present: normal inspection. Absent: tenderness, meningismus, lymphadenopathy Respiratory exam: Present: normal lung sounds bilaterally, chest wall tenderness. Absent: respiratory distress, wheezes, rales, rhonchi, stridor, accessory muscle use, decreased breath sounds Cardiovascular Exam: Present: regular rate, normal rhythm, normal heart sounds. Absent: systolic murmur, diastolic murmur, rubs, gallop, clicks GI/Abdominal exam: Present: soft, normal bowel sounds. Absent: distended, tenderness, guarding, rebound, rigid Extremities exam: Present: normal inspection, full ROM, normal capillary refill. Absent: tenderness, pedal edema, joint swelling, calf tenderness Back exam: Present: normal inspection Neurological exam: Present: alert, oriented X3, CN II-XII intact Psychiatric exam: Present: normal affect, normal mood Skin exam: Present: warm, dry, intact, normal color. Absent: rash Course Vital Signs 06/20/21 06/20/21 17:36 18:49 Temperature 97.6 F 98.1 F Pulse Rate 88 60 Respiratory 16 18 Rate Blood Pressure 142/92 132/74 O2 Sat by Pulse 97 99 Oximetry - Reevaluation(s) Reevaluation #1: 06/20/21 19:22 Medical record is reviewed Symptoms are improved here in the emergency department Patient is informed of results and questions answered Patient in no distress Chest Pain MDM - Differential Diagnosis AMI, ACS, Pneumonia, Pleurisy-Other, Chest Wall Syndrome - MDM Impression presents with what appears to be [place] skeletal chest wall pain. Patient has reproducible chest wall tenderness with both palpation and movement. Patient did have a few episodes of vomiting which does make chest wall tenderness a little atypical. However no abdominal tenderness. Patient previously has had her gallbladder removed. Patient is perc 0. The case was discussed in detail with ED attending physician. Presentation, findings, treatment plan discussed in detail. PERC 0 Patient's workup appears essentially negative. Patient's heart score is essentially 0. Given the patient's age and reproducibility of her chest pain. I think this is very low risk for any cardiac etiology. Patient was told to return to the ER for any signs or symptoms worsen. Told to return immediately if any other problems arise. All questions answered. Treatment plan discussed. Patient in agreement Every effort has been made to ensure accuracy of this dictation. However, due to the limitations of electronic medical records and dictation devices, errors in charting still occur. Case was discussed in detail with the ED attending physician, Dr. Dowling Disposition Clinical Impression: Chest wall syndrome, Costochondritis Disposition: HOME SELF-CARE Instructions (If sedation given, give patient instructions): Chest Pain (ED), Costochondritis (ED) Additional Instructions: Follow-up with your regular physician as directed. Return to the ER immediately if any symptoms worsen, new symptoms arise, or any other problems develop. Prescriptions: Cyclobenzaprine [Flexeril] 10 mg PO TID PRN #20 tab PRN Reason: Spasms Naproxen [Naprosyn] 375 mg PO Q12HR PRN #20 tablet PRN Reason: Pain Acetaminophen [Tylenol] 500 mg PO Q4-6H PRN #24 tab PRN Reason: Pain Is patient prescribed a controlled substance at d/c from ED?: No Referrals: Felisha Goins MD [STAFF PHYSICIAN] - 1-2 days Time of Disposition: 19:24
[2021-06-20 18:32] LABS: Basophils # (A) 0.1 k/uL (0-0.2); Basophils % (A) 0 %; Eosinophils # (A) 0.2 k/uL (0-0.7); Eosinophils % (A) 2 %; HCT 41.1 % (34.0-46.0); HGB 14.1 gm/dL (11.4-16.0); Lymphocytes # (A) 3.4 k/uL (1.0-4.8); Lymphocytes % (A) 30 %; MCH 30.3 pg (25.0-35.0); MCHC 34.4 g/dL (31.0-37.0); MCV 88.3 fL (80.0-100.0); Mean Platelet Volume 8.5; Monocytes # (A) 0.5 k/uL (0-1.0); Monocytes % (A) 5 %; Neutrophils # (A) 7.1 k/uL (1.3-7.7); Neutrophils % (A) 62 %; Platelet Count 292 k/uL (150-450); RBC 4.65 m/uL (3.80-5.40); RDW 13.2 % (11.5-15.5); WBC 11.5 k/uL (3.8-10.6)
[2021-06-20 18:49] LABS: ALT 24 U/L (4-34); AST 27 U/L (14-36); African American GFR (CKD) >90 (>60 ml/min/1.73 sqM); Albumin 4.4 g/dL (3.5-5.0); Alkaline Phosphatase 63 U/L (38-126); Anion Gap 8 mmol/L; Blood Urea Nitrogen 12 mg/dL (7-17); Calcium 9.7 mg/dL (8.4-10.2); Carbon Dioxide 26 mmol/L (22-30); Chloride 105 mmol/L (98-107); Glucose 105 mg/dL (74-99); Lipase 61 U/L (23-300); Magnesium 2.1 mg/dL (1.6-2.3); Non-African American GFR(CKD) >90 (>60 ml/min/1.73 sqM); Sodium 139 mmol/L (137-145); Total Bilirubin 0.5 mg/dL (0.2-1.3); Total Protein 7.9 g/dL (6.3-8.2)
[2021-06-20 18:50] VITALS: BP 132/74; PULSE 60; RESP 18; TEMP 98.1
--- NOTE | 2021-06-20 19:02 | XR ---
EXAMINATION TYPE: XR abdomen acute w cxr DATE OF EXAM: 06/20/2021 COMPARISON: Chest x-ray 12/23/2020 HISTORY: Pain TECHNIQUE: 4 views FINDINGS: There is no sign of intestinal obstruction or pneumoperitoneum. Fecal pattern is normal. Th ere are clips from cholecystectomy. There are no pathologic calcifications over the kidneys. Heart an d mediastinum are normal. Lungs are clear. Diaphragm is normal. IMPRESSION: Normal chest. Nonacute abdomen.
[2021-06-20] MEDS ORDERED: KETOROLAC 15 MG/ML 1 ML VIAL IVP STA (19:23)
== END 2021-06-20 19:56 | disposition home or self-care (01) ==
LOC: EC 17:35
DX: M94.0 Chondrocostal junction syndrome [Tietze] (principal); J44.9 Chronic obstructive pulmonary disease, unspecified; F41.9 Anxiety disorder, unspecified; F31.9 Bipolar disorder, unspecified; F12.90 Cannabis use, unspecified, uncomplicated; Z90.49 Acquired absence of other specified parts of digestive tract; Z87.891 Personal history of nicotine dependence
CPT/HCPCS: 99285; 96374; 96375 ×2; 96361; 36415; 93005; 80053; 83690; 83735; 84484; 85025; 74022; J2270; J2405; J1885

== ENCOUNTER → 2022-04-12 | Outpatient (CLI) | payer OTHER ==
--- NOTE | 2022-04-12 15:34 | US ---
EXAMINATION TYPE: US pelvic complete DATE OF EXAM: 04/12/2022 COMPARISON: NONE CLINICAL HISTORY: N91.2 AMENORRHEA, UNSPECIFIED. Amenorrhea. TECHNIQUE: Transabdominal (TA). Transabdominal sonographic images of the pelvis were acquired. EXAM MEASUREMENTS: Uterus: 10.2 x 4.2 x 6.1 cm Endometrial Stripe: .6 cm Right Ovary: 3.9 x 2.2 x 2.3 cm Left Ovary: 3.9 x 2.4 x 2.6 cm 1. Uterus: Anteverted wnl 2. Endometrium: wnl 3. Right Ovary: wnl 4. Left Ovary: wnl 5. Bilateral Adnexa: wnl 6. Posterior cul-de-sac: wnl IMPRESSION: No discrete abnormality appreciated.
== END | disposition home or self-care (01) ==
LOC: RADUSWWP 15:03
PROVIDERS: ATTEND Obstetrics & Gynecology
DX: N91.2 Amenorrhea, unspecified (principal)
CPT/HCPCS: 76856

== ENCOUNTER 2022-04-20 10:18 | Emergency (ER) | payer OTHER ==
[2022-04-20] MEDS ORDERED: SODIUM CHLORIDE 0.9% 1,000 ML IV STA (10:42)
--- NOTE | 2022-04-20 10:50 | ED ---
Abdominal Pain HPI - General Chief Complaint: Abdominal Pain Stated Complaint: abd pain Time Seen by Provider: 04/20/22 10:37 Source: patient, RN notes reviewed, old records reviewed Mode of arrival: ambulatory Limitations: no limitations - History of Present Illness Initial Comments: This is a well-appearing 26-year-old female who presents ambulatory with complaints of nausea vomiting with abdominal pain for over a month. States that she was seen in urgent care and diagnosed with coronavirus on Monday. Patient states they did a urine test that was negative. She denies any fevers. States that she did have one episode of diarrhea today. She does smoke marijuana and vape daily. She does have a history of asthma. Surgical history of appendectomy and cholecystectomy. States she does not take any medication on a daily basis. MD Complaint: abdominal pain -: month(s) (1) Location: diffuse Radiation: none Severity scale (1-10): 6 Quality: sharp Consistency: intermittent Improves With: nothing Context: other (Diagnosed with coronavirus Monday) Associated Symptoms: nausea, vomiting, diarrhea - Related Data Patient : No Home Medications Medication Instructions Recorded Confirmed lamoTRIgine [LaMICtal] 150 mg PO DAILY 11/21/19 04/20/22 Dextroamphetamine/Amphetamine 20 mg PO BID 12/23/20 04/20/22 [Adderall] FLUoxetine HCL [PROzac] 40 mg PO DAILY 12/23/20 04/20/22 FLUoxetine HCL [PROzac] 10 mg PO DAILY 04/20/22 04/20/22 Allergies Allergy/AdvReac Type Severity Reaction Status Date / Time No Known Allergies Allergy Verified 04/20/22 11:25 Review of Systems ROS Statement: Those systems with pertinent positive or pertinent negative responses have been documented in the HPI. ROS Other: All systems not noted in ROS Statement are negative. Past Medical History Past Medical History: Asthma, COPD Additional Past Medical History / Comment(s): Obstetrical history: She's had one previous section . This is her second she's had care with me since first trimester. Blood type is O+, hepatitis, rubella immune, RPR nonreactive, hepatitis B-. History of Any Multi-Drug Resistant Organisms: None Reported Past Surgical History: Appendectomy, Section, Cholecystectomy Additional Past Surgical History / Comment(s): C-S Past Anesthesia/Blood Transfusion Reactions: No Reported Reaction Past Psychological History: Anxiety, Bipolar Smoking Status: Current every day smoker Past Alcohol Use History: None Reported Past Drug Use History: Marijuana - Past Family History Father Family Medical History: Congestive Heart Failure (CHF), Myocardial Infarction ([place]) General Exam Limitations: no limitations General appearance: alert, in no apparent distress Head exam: Present: atraumatic Eye exam: Absent: scleral icterus, conjunctival injection, periorbital swelling ENT exam: Present: mucous membranes moist Respiratory exam: Present: normal lung sounds bilaterally. Absent: respiratory distress, accessory muscle use Cardiovascular Exam: Present: regular rate GI/Abdominal exam: Present: soft, normal bowel sounds. Absent: distended, t enderness, rigid Extremities exam: Present: full ROM, normal capillary refill. Absent: tenderness, pedal edema, calf tenderness Back exam: Present: normal inspection. Absent: tenderness, CVA tenderness (R), CVA tenderness (L), rash noted Neurological exam: Present: alert, oriented X3 Psychiatric exam: Present: normal affect, normal mood Skin exam: Present: warm, dry, normal color. Absent: cyanosis, diaphoretic, pallor Course Vital Signs 04/20/22 04/20/22 04/20/22 10:19 12:10 13:09 Temperature 97.6 F 97.7 F 97.8 F Pulse Rate 82 83 96 Respiratory 20 16 16 Rate Blood Pressure 120/75 101/57 150/86 O2 Sat by Pulse 99 99 96 Oximetry Medical Decision Making - Medical Decision Making Patient is afebrile, vital signs are stable. She was given droperidol and IV fluids with complete relief. Labs show a leukocytosis likely from persistent vomiting. Electrolytes unremarkable. Urinalysis is clear with no evidence of infection or . She was diagnosed with coronavirus on Monday. X-rays reviewed by me shows no evidence of free air or intestinal obstruction. Radiologist's interpretation nonspecific nonobstructive bowel gas pattern. She has a history of appendectomy and cholecystectomy. She was discharged home, states that she is feeling better. Case discussed with Dr. Ley who was agreeable to this plan of care. Was pt. sent in by a medical professional or institution? @ No Did you speak to anyone other than the patient for history? @ No Did you review nursing and triage notes? @ yes Were old charts reviewed? @ Yes Differential Diagnosis? @ Appendicitis, viral illness, urinary tract infection, small bowel obstruction, EKG interpreted by me (3pts min.)? @ Not applicable X-rays interpreted by me (1pt min.)? @ Yes CT interpreted by me (1pt min.)? @ Not applicable U/S interpreted by me (1pt. min.)? @ Not applicable What testing was considered but not performed? (CT, X-rays, U/S, labs)? Why? @ CT was considered however patient has had an appendectomy and cholecystectomy, ultrasound was considered however patient is not , no concern for torsion What meds were considered but not given? Why? @ Narcotic pain medication was considered, patient's pain was resolved with droperidol and IV fluids Did you discuss the management of the patient with other professionals? @ None Did you reconcile home meds? @ No Was smoking cessation discussed for >3mins.? @ Yes Was critical care preformed (if so, how long)? @ No Were there social determinants of health that impacted care today? How? (Homelessness, low income, unemployed, alcoholism, drug addiction, transportation, low edu. Level, literacy, decrease access to med. care, [facility], rehab)? @ Not applicable Was there de-escalation of care discussed even if they declined? (Discuss DNR or withdrawal of care, Hospice)? @ Not applicable What co-morbidities impacted this encounter? (DM, HTN, Smoking, COPD, CAD, Cancer, CVA, Hep., AIDS, mental health diagnosis, sleep apnea, morbid obesity)? @ None Was patient admitted / discharged? @ Discharged Undiagnosed new problem with uncertain prognosis? @ None Drug Therapy requiring intensive monitoring for toxicity (Heparin, Nitro, Insulin, Cardizem)? @ None Were any procedures done? @ None Diagnosis/symptom? @ Viral illness, nausea vomiting Acute, or Chronic, or Acute on Chronic? @ Acute Uncomplicated (without systemic symptoms) or Complicated (systemic symptoms)? @ Uncomplicated Side effects of treatment? @ None Exacerbation, Progression, or Severe Exacerbation] @ Not applicable Poses a threat to life or bodily function? @ No - Lab Data Result diagrams: 04/20/22 11:14 04/20/22 11:14 Lab Results 04/20/22 04/20/22 04/20/22 Range/Units 11:14 11:14 11:14 WBC 16.0 H (3.8-10.6) k/uL RBC 4.72 (3.80-5.40) m/uL Hgb 14.2 (11.4-16.0) gm/dL Hct 41.2 (34.0-46.0) % MCV 87.2 (80.0-100.0) fL MCH 30.1 (25.0-35.0) pg MCHC 34.5 (31.0-37.0) g/dL RDW 12.3 (11.5-15.5) % Plt Count 294 (150-450) k/uL MPV 8.3 Neutrophils % 85 % Lymphocytes % 10 % Monocytes % 3 % Eosinophils % 1 % Basophils % 0 % Neutrophils # 13.6 H (1.3-7.7) k/uL Lymphocytes # 1.6 (1.0-4.8) k/uL Monocytes # 0.5 (0-1.0) k/uL Eosinophils # 0.2 (0-0.7) k/uL Basophils # 0.1 (0-0.2) k/uL Sodium (137-145) mmol/L Potassium (3.5-5.1) mmol/L Chloride (98-107) mmol/L Carbon Dioxide (22-30) mmol/L Anion Gap mmol/L BUN (7-17) mg/dL Creatinine (0.52-1.04) mg/dL Est GFR (CKD-EPI)AfAm (>60 ml/min/1.73 sqM) Est GFR (CKD-EPI)NonAf (>60 ml/min/1.73 sqM) Glucose (74-99) mg/dL Plasma Lactic Acid Antoine (0.7-2.0) mmol/L Calcium (8.4-10.2) mg/dL Total Bilirubin (0.2-1.3) mg/dL AST (14-36) U/L ALT (4-34) U/L Alkaline Phosphatase (38-126) U/L Total Protein (6.3-8.2) g/dL Albumin (3.5-5.0) g/dL Amylase (30-110) U/L Lipase (23-300) U/L Urine Color Yellow Urine Appearance Clear (Clear) Urine pH 5.5 (5.0-8.0) Ur Specific Higgins 1.026 (1.001-1.035) Urine Protein Trace H (Negative) Urine Glucose (UA) Negative (Negative) Urine Ketones Negative (Negative) Urine Blood Negative (Negative) Urine Nitrite Negative (Negative) Urine Bilirubin Negative (Negative) Urine Urobilinogen <2.0 (<2.0) mg/dL Ur Leukocyte Esterase Negative (Negative) Urine HCG, Qual Not Detected (Not Detectd) 04/20/22 04/20/22 Range/Units 11:14 11:14 WBC (3.8-10.6) k/uL RBC (3.80-5.40) m/uL Hgb (11.4-16.0) gm/dL Hct (34.0-46.0) % MCV (80.0-100.0) fL MCH (25.0-35.0) pg MCHC (31.0-37.0) g/dL RDW (11.5-15.5) % Plt Count (150-450) k/uL MPV Neutrophils % % Lymphocytes % % Monocytes % % Eosinophils % % Basophils % % Neutrophils # (1.3-7.7) k/uL Lymphocytes # (1.0-4.8) k/uL Monocytes # (0-1.0) k/uL Eosinophils # (0-0.7) k/uL Basophils # (0-0.2) k/uL Sodium 140 (137-145) mmol/L Potassium 4.6 (3.5-5.1) mmol/L Chloride 105 (98-107) mmol/L Carbon Dioxide 28 (22-30) mmol/L Anion Gap 7 mmol/L BUN 13 (7-17) mg/dL Creatinine 0.69 (0.52-1.04) mg/dL Est GFR (CKD-EPI)AfAm >90 (>60 ml/min/1.73 sqM) Est GFR (CKD-EPI)NonAf >90 (>60 ml/min/1.73 sqM) Glucose 99 (74-99) mg/dL Plasma Lactic Acid Antoine 1.1 (0.7-2.0) mmol/L Calcium 8.9 (8.4-10.2) mg/dL Total Bilirubin 0.3 (0.2-1.3) mg/dL AST 21 (14-36) U/L ALT 20 (4-34) U/L Alkaline Phosphatase 48 (38-126) U/L Total Protein 7.3 (6.3-8.2) g/dL Albumin 4.3 (3.5-5.0) g/dL Amylase 64 (30-110) U/L Lipase 52 (23-300) U/L Urine Color Urine Appearance (Clear) Urine pH (5.0-8.0) Ur Specific Higgins (1.001-1.035) Urine Protein (Negative) Urine Glucose (UA) (Negative) Urine Ketones (Negative) Urine Blood (Negative) Urine Nitrite (Negative) Urine Bilirubin (Negative) Urine Urobilinogen (<2.0) mg/dL Ur Leukocyte Esterase (Negative) Urine HCG, Qual (Not Detectd) Disposition Clinical Impression: Abdominal pain, COVID-19 Disposition: HOME SELF-CARE Condition: Good Instructions (If sedation given, give patient instructions): Acute Nausea and Vomiting (ED), Abdominal Pain (ED), COVID-19 (Coronavirus Disease 2019) (ED) Additional Instructions: Increase your fluid intake. Stop smoking marijuana. Follow-up with the primary care doctor next week. Return to the emergency room with any new or concerning symptoms. Is patient prescribed a controlled substance at d/c from ED?: No Referrals: None,Stated [Primary Care Provider] - 1-2 days Time of Disposition: 13:06
[2022-04-20 11:26] LABS: Basophils # (A) 0.1 k/uL (0-0.2); Basophils % (A) 0 %; Eosinophils # (A) 0.2 k/uL (0-0.7); Eosinophils % (A) 1 %; HCT 41.2 % (34.0-46.0); HGB 14.2 gm/dL (11.4-16.0); Lymphocytes # (A) 1.6 k/uL (1.0-4.8); Lymphocytes % (A) 10 %; MCH 30.1 pg (25.0-35.0); MCHC 34.5 g/dL (31.0-37.0); MCV 87.2 fL (80.0-100.0); Mean Platelet Volume 8.3; Monocytes # (A) 0.5 k/uL (0-1.0); Monocytes % (A) 3 %; Neutrophils # (A) 13.6 k/uL (1.3-7.7); Neutrophils % (A) 85 %; Platelet Count 294 k/uL (150-450); RBC 4.72 m/uL (3.80-5.40); RDW 12.3 % (11.5-15.5)
[2022-04-20 11:33] LABS: Appearance,Urine Clear (Clear); Bilirubin,Urine Negative (Negative); Blood,Urine Negative (Negative); Color,Urine Yellow; Glucose,Urine (UA) Negative (Negative); Ketones,Urine Negative (Negative); Leukocyte Esterase,Urine Negative (Negative); Nitrite,Urine Negative (Negative); PH, Urine 5.5 (5.0-8.0); Protein,Urine Trace (Negative); Specific Gravity,Urine 1.026 (1.001-1.035); Urobilinogen,Urine <2.0 mg/dL (<2.0)
[2022-04-20 11:52] LABS: ALT 20 U/L (4-34); AST 21 U/L (14-36); African American GFR (CKD) >90 (>60 ml/min/1.73 sqM); Albumin 4.3 g/dL (3.5-5.0); Alkaline Phosphatase 48 U/L (38-126); Amylase 64 U/L (30-110); Anion Gap 7 mmol/L; Blood Urea Nitrogen 13 mg/dL (7-17); Calcium 8.9 mg/dL (8.4-10.2); Carbon Dioxide 28 mmol/L (22-30); Chloride 105 mmol/L (98-107); Glucose 99 mg/dL (74-99); Lipase 52 U/L (23-300); Non-African American GFR(CKD) >90 (>60 ml/min/1.73 sqM); Potassium 4.6 mmol/L (3.5-5.1); Sodium 140 mmol/L (137-145); Total Bilirubin 0.3 mg/dL (0.2-1.3); Total Protein 7.3 g/dL (6.3-8.2)
[2022-04-20 12:12] VITALS: RESP 16
--- NOTE | 2022-04-20 13:08 | XR ---
EXAMINATION TYPE: XR KUB DATE OF EXAM: 04/20/2022 COMPARISON: NONE HISTORY: Pain TECHNIQUE: Single supine KUB image of the abdomen is obtained FINDINGS: Small bowel demonstrates no evidence for dilatation. A few small nonspecific scattered air-fluid leve ls. Gas and fecal material is seen in non-distended colon. No convincing evidence for pneumoperitoneum. No unusual calcifications. The lung bases are clear. The osseous structures are intact. IMPRESSION: 1. Nonspecific nonobstructive bowel gas pattern.
[2022-04-20 13:12] VITALS: BP 150/86; PULSE 96; TEMP 97.8
== END 2022-04-20 13:16 | disposition home or self-care (01) ==
LOC: EC 10:18
DX: U07.1 COVID-19 (principal); R10.9 Unspecified abdominal pain; J44.9 Chronic obstructive pulmonary disease, unspecified; F41.9 Anxiety disorder, unspecified; F31.9 Bipolar disorder, unspecified; F17.200 Nicotine dependence, unspecified, uncomplicated; F12.90 Cannabis use, unspecified, uncomplicated; Z79.899 Other long term (current) drug therapy
CPT/HCPCS: 36415; 80053; 82150; 83605; 83690; 85025; 81003; 81025; 74018; 99284; 96374; 96361; J1790

== ENCOUNTER 2022-05-12 06:23 | Day surgery (SDC) | payer OTHER ==
[2022-05-09 12:12] VITALS: BMI 31.4
--- NOTE | 2022-05-12 06:14 | P.HPOB ---
History of Present Illness H&P Date: 05/12/22 Chief Complaint: family planning 26 year old presents for laparoscopic tubal ligation. Review of Systems All systems: negative Constitutional: Denies chills, Denies fever Eyes: denies blurred vision, denies pain Ears, nose, mouth and throat: Denies headache, Denies sore throat Cardiovascular: Denies chest pain, Denies shortness of breath Respiratory: Denies cough Gastrointestinal: Denies abdominal pain, Denies diarrhea, Denies nausea, Denies vomiting Genitourinary: Denies dysuria, Denies hematuria Musculoskeletal: Denies myalgias Integumentary: Denies pruritus, Denies rash Neurological: Denies numbness, Denies weakness Psychiatric: Denies anxiety, Denies depression Endocrine: Denies fatigue, Denies weight change Past Medical History Past Medical History: Asthma Additional Past Medical History / Comment(s): borderline asthma (no rx). History of Any Multi-Drug Resistant Organisms: None Reported Past Surgical History: Appendectomy, Section, Cholecystectomy Additional Past Surgical History / Comment(s): C-S Past Anesthesia/Blood Transfusion Reactions: No Reported Reaction Past Psychological History: Anxiety, Bipolar, Depression Additional Psychological History / Comment(s): no current meds Smoking Status: Former smoker Past Alcohol Use History: None Reported Additional Past Alcohol Use History / Comment(s): Began Smoking age 10, 1/2 ppd est, quit 2019. Past Drug Use History: Marijuana Additional Drug Use History / Comment(s): current marijuana use. - Past Family History Father Family Medical History: Congestive Heart Failure (CHF), Myocardial Infarction ([place]) Medications and Allergies Home Medications Medication Instructions Recorded Confirmed Type No Known Home Medications 05/09/22 05/09/22 History Allergies Allergy/AdvReac Type Severity Reaction Status Date / Time No Known Allergies Allergy Verified 05/09/22 11:56 Exam Osteopathic Statement: *. No significant issues noted on an osteopathic structural exam other than those noted in the History and Physical/Consult. HEart: RRR Lungs: CTAB Abdomen: soft, nontender Extremeties: neg anel's Assessment and Plan (1) Family planning Status: Acute Code(s): Z30.09 - ENCOUNTER FOR OTH GENERAL CNSL AND ADVICE ON CONTRACEPTION SNOMED Code(s): 539184537 Plan: 1. laparoscopic tubal ligation
[~2022-05-12 06:23] MED LIST: Pre Op ABX Message 1 EACH MISC MISCELLANE ONE
[2022-05-12] MEDS ORDERED: ONDANSETRON 4 MG/2 ML VIAL IVP ONE (06:39)
[2022-05-12] MEDS ORDERED: DEXAMETHASONE SOD PHOSPHATE 4 MG/ML 1 ML VIAL IV ONE (06:39)
[2022-05-12] MEDS ORDERED: LIDOCAINE 1% (10MG/ML) FOR IV START INTRADERMA PRN (06:39)
[2022-05-12] MEDS ORDERED: LACTATED RINGERS 1,000 ML IV SCH (06:39)
[2022-05-12] MEDS ORDERED: fentaNYL (PF) 50 MCG/ML 2 ML AMP ONE (07:21)
[2022-05-12] MEDS ORDERED: LIDOCAINE 2% INJ 20 MG/ML (2 ML VIAL) ONE (07:21)
[2022-05-12] MEDS ORDERED: PROPOFOL 10 MG/ML 20 ML VIAL IV ONE (07:21)
[2022-05-12] MEDS ORDERED: SUCCINYLCHOLINE CHLORIDE 200 MG/10 ML VIAL IV ONE (07:21)
[2022-05-12] MEDS ORDERED: MIDAZOLAM 2 MG/2 ML VIAL ONE (07:21)
[2022-05-12] MEDS ORDERED: GLYCOPYRROLATE 0.2 MG/ML 2 ML VIAL ONE (07:21)
[2022-05-12] MEDS ORDERED: NEOSTIGMINE 1 MG/ML 10 ML VIAL ONE (07:21)
[2022-05-12] MEDS ORDERED: ROCURONIUM 10 MG/ML (5 ML VIAL) IV ONE (07:21)
[2022-05-12] MEDS ORDERED: BUPIVACAINE (PF) 0.25% 30 ML VIAL SQ ONE ×2 (07:53)
[2022-05-12 08:26] VITALS: TEMP 96.4
--- NOTE | 2022-05-12 08:26 | P.OP ---
Date of Procedure: 05/12/22 Preoperative Diagnosis: 1. family planning Postoperative Diagnosis: 1. family planning 2. omental adhesions Procedure(s) Performed: laparoscopic tubal ligation Anesthesia: ALFIEA Surgeon: Dee Schmid Estimated Blood Loss (ml): 3 IV fluids (ml): 500 Urine output (ml): 20 Pathology: none sent Condition: stable Disposition: PACU Operative Findings: normal uterus, tubes and ovaries. omental adhesions just inferior to the umbilic us to the anterior abdominal wall Description of Procedure: Patient was taken to the operating room where general anesthesia was obtained without difficulty. She was prepped and draped in normal sterile fashion in the dorsal lithotomy position, legs placed in the Yasmani stirrups. Bladder drained of all urine. Dupree speculum placed in the vagina and the anterior lip the cervix was grasped with single-tooth tenaculum. The uterus is sounded to 8 cm and the kroner manipulator was placed. Attention was then turned to the abdomen and gloves were changed. A 10 mm infraumbilical incision was made the scalpel and 10 mm optical trocar was placed under direct visualization. Of note there were omental adhesions that I did work around just inferior to the umbilical incision. A 5 mm suprapubic Incision was made and a 5 mm optical trocar was placed under direct visualization. Survey of the pelvis revealed normal uterus tubes and ovaries along with the omental adhesions. The left fallopian tube was grasped with a Kleppinger and fulgurated 2-3 cm on this side in the ampullar portion. The right fallopian tube was grasped with a Kleppinger and fulgurated 2-3 cm in the ampullar portion. All instruments were then removed from the abdomen and vagina. The 10 mm infraumbilical incision was closed with 0 Vicryl and the fascial layer and then 4-0 Vicryl in a subcuticular fashion. The 5 mm incision was closed with 4-0 Vicryl in a subcuticular fashion. Patient tolerated procedure well, sponge and instrument counts correct 2 and she was taken to recovery room in stable condition.
[2022-05-12] MEDS: HYDROmorphone 0.5 MG/0.5 ML SYRINGE IVP PRN ×2 (08:28→08:33)
[2022-05-12 09:14] VITALS: BP 138/88; PULSE 55; RESP 18
== END 2022-05-12 09:53 | disposition home or self-care (01) ==
LOC: OR 06:23 → EDSTATUS 08:45 → OR 09:53
PROVIDERS: ATTEND Obstetrics & Gynecology
DX: Z30.2 Encounter for sterilization (principal); K66.0 Peritoneal adhesions (postprocedural) (postinfection); J45.909 Unspecified asthma, uncomplicated; F31.9 Bipolar disorder, unspecified; F41.8 Other specified anxiety disorders; F12.90 Cannabis use, unspecified, uncomplicated; Z90.49 Acquired absence of other specified parts of digestive tract; Z90.710 Acquired absence of both cervix and uterus; Z87.891 Personal history of nicotine dependence
CPT/HCPCS: 81025; 58670; J2250; J0330; J1100; J2710; J2405; J3010; J2704; J1170; J2001

== ENCOUNTER 2023-10-18 10:54 | Emergency (ER) | payer OTHER ==
[2023-10-18 11:04] VITALS: RESP 18
--- NOTE | 2023-10-18 12:12 | ED ---
Dizziness HPI - General Chief Complaint: Dizziness Stated Complaint: Headache/Dizziness Time Seen by Provider: 10/18/23 12:07 Source: patient, RN notes reviewed Mode of arrival: ambulatory Limitations: no limitations - History of Present Illness Initial Comments: 27-year-old female presenting with head injury 1 day ago. States yesterday she bent down to grab her hose outside and accidentally hit her left forehead on a shelf. Denies loss of consciousness. Denies blood thinners. States since the injury she has had severe pain on her left forehead radiating to the back of her head. She also admits that she drove off the road [address] to work this morning because she could not keep her eyes open. She is endorsing dizziness as it feels as though "the room is spinning around her". She also reports when she was at work today the numbers on the screen looked blurry. She reports symptoms mostly resolved when she sits still. She has never had this before. Denies any significant medical history - Related Data Previous Rx's Medication Instructions Recorded HYDROcodone/APAP 7.5-325MG [[place] 1 tab PO Q6HR PRN 3 Days #12 tab 05/12/22 7.5-325] Ibuprofen [Motrin] 600 mg PO Q6HR PRN #30 tab 05/12/22 Allergies Allergy/AdvReac Type Severity Reaction Status Date / Time No Known Allergies Allergy Verified 10/18/23 11:04 Review of Systems ROS Statement: Those systems with pertinent positive or pertinent negative responses have been documented in the HPI. ROS Other: All systems not noted in ROS Statement are negative. Past Medical History Past Medical History: Asthma, COPD Additional Past Medical History / Comment(s): Obstetrical history: She's had one previous section . This is her second she's had care with me since first trimester. Blood type is O+, hepatitis, rubella immune, RPR nonreactive, hepatitis B-. History of Any Multi-Drug Resistant Organisms: None Reported Past Surgical History: Appendectomy, Section, Cholecystectomy Additional Past Surgical History / Comment(s): C-S Past Anesthesia/Blood Transfusion Reactions: No Reported Reaction Past Psychological History: Anxiety, Bipolar Smoking Status: Current every day smoker Past Alcohol Use History: None Reported Past Drug Use History: Marijuana - Past Family History Father Family Medical History: Congestive Heart Failure (CHF), Myocardial Infarction ([place]) General Exam Limitations: no limitations General appearance: alert, in no apparent distress Head exam: Present: atraumatic, normocephalic, normal inspection, other (Tenderness to palpation along left temporal area of head) Eye exam: Present: normal appearance, PERRL, EOMI. Absent: scleral icterus, conjunctival injection, periorbital swelling ENT exam: Present: normal exam, mucous membranes moist, TM's normal bilaterally Neck exam: Present: normal inspection. Absent: tenderness, meningismus, lymphadenopathy Respiratory exam: Present: normal lung sounds bilaterally. Absent: respiratory distress, wheezes, rales, rhonchi, stridor Cardiovascular Exam: Present: regular rate, normal rhythm, normal heart sounds. Absent: systolic murmur, diastolic murmur, rubs, gallop, clicks Extremities exam: Present: normal inspection, full ROM, normal capillary refill. Absent: tenderness, pedal edema, joint swelling, calf tenderness Neurological exam: Present: alert, oriented X3, CN II-XII intact Psychiatric exam: Present: normal affect, normal mood Skin exam: Present: warm, dry, intact, normal color. Absent: rash Course Vital Signs 10/18/23 10/18/23 11:02 14:01 Temperature 98.2 F 98.1 F Pulse Rate 68 65 Respiratory 18 18 Rate Blood Pressure 132/81 131/83 O2 Sat by Pulse 99 97 Oximetry Medical Decision Making - Medical Decision Making Was pt. sent in by a medical professional or institution (, PA, SALES OPERATIONS MANAGER, urgent care, hospital, or retirement...) When possible be specific @ -No Did you speak to anyone other than the patient for history (EMS, parent, family, police, friend...)? What history was obtained from this source @ -No Did you review nursing and triage notes (agree or disagree)? Why? @ -I reviewed and agree with nursing and triage notes Were old charts reviewed (outside hosp., previous admission, EMS record, old EKG, old radiological studies, urgent care reports/EKG's, retirement records)? Report findings @ -No old charts were reviewed Differential Diagnosis (chest pain, altered mental status, abdominal pain women, abdominal pain men, vaginal bleeding, weakness, fever, dyspnea, syncope, headache, dizziness, GI bleed, back pain, seizure, CVA, palpatations, mental health, musculoskeletal)? @ -Differential Headache: Concussion, fracture, intracranial bleed, migraine, tension, cluster, carbon monoxide, central venous thrombosis, pension karma temporal arteritis, acute closure glaucoma, intercranial hemorrhage, mastoiditis, sinusitis, head injury, this is not meant to be an all-inclusive list. EKG interpreted by me (3pts min.). @ -None X-rays interpreted by me (1pt min.). @ -None done CT interpreted by me (1pt min.). @ -CT revealed no acute intracranial process U/S interpreted by me (1pt. min.). @ -None done What testing was considered but not performed or refused? (CT, X-rays, U/S, labs)? Why? @ -None What meds were considered but not given or refused? Why? @ -None Did you discuss the management of the patient with other professionals (professionals i.e. , PA, SALES OPERATIONS MANAGER, lab, RT, psych nurse, home health care social worker, carbon brusher assembler, teacher, community reinvestment act officer, rifle case repairer)? Give summary @ -No Was smoking cessation discussed for >3mins.? @ -No Was critical care preformed (if so, how long)? @ -No Were there social determinants of health that impacted care today? How? (Homelessness, low income, unemployed, alcoholism, drug addiction, transportation, low edu. Level, literacy, decrease access to med. care, alf, rehab)? @ -No Was there de-escalation of care discussed even if they declined (Discuss DNR or withdrawal of care, Hospice)? DNR status @ -No What co-morbidities impacted this encounter? (DM, HTN, Smoking, COPD, CAD, Cancer, CVA, ARF, Chemo, Hep., AIDS, mental health diagnosis, sleep apnea, morbid obesity)? @ -None Was patient admitted / discharged? Hospital course, mention meds given and route, prescriptions, significant lab abnormalities, going to OR and other pertinent info. @ -Patient was discharged. Patient was seen and evaluated for head injury 1 day ago. Patient denies loss of consciousness or blood thinners. Vitals signs are unremarkable. Physical examination reveals tenderness to palpation of left temporal portion of head. Neuro examination is unremarkable. CT scan performed and was negative for acute intracranial process. Diagnosis of mild concussion discussed with patient in detail. Strict return/alarm symptoms discussed with patient and she shows understanding and agrees with plan. Advise follow-up with PCP in 1 to 3 days for reevaluation. Work note provided. Supportive care discussed. Case discussed with my attending Dr. Hamilton. Patient discharged in stable condition Undiagnosed new problem with uncertain prognosis? @ -No Drug Therapy requiring intensive monitoring for toxicity (Heparin, Nitro, Insulin, Cardizem)? @ -No Were any procedures done? @ -No Diagnosis/symptom? @ -Mild concussion status post head injury Acute, or Chronic, or Acute on Chronic? @ -Acute Uncomplicated (without systemic symptoms) or Complicated (systemic symptoms)? @ -Uncomplicated Side effects of treatment? @ -No Exacerbation, Progression, or Severe Exacerbation? @ -No Poses a threat to life or bodily function? How? (Chest pain, USA, CT, pneumonia, PE, COPD, DKA, ARF, appy, cholecystitis, CVA, Diverticulitis, Homicidal, Suicidal, threat to staff... and all critical care pts) @ -Low likelihood Disposition Clinical Impression: Mild concussion Disposition: HOME SELF-CARE Condition: Stable Instructions (If sedation given, give patient instructions): Concussion (ED) Additional Instructions: Follow-up with PCP as discussed. Please return to the Emergency Department if symptoms worsen or any other concerns. Is patient prescribed a controlled substance at d/c from ED?: No Referrals: None,Stated [Primary Care Provider] - 1-2 days Time of Disposition: 13:47
--- NOTE | 2023-10-18 12:39 | CT ---
EXAMINATION TYPE: CT brain wo con DATE OF EXAM: 10/18/2023 COMPARISON: None INDICATION: headaches dizziness, pt states she hit the left side of her head on a shelf yesterday, no loc DLP: 1096.4 mGycm, Automated exposure control for dose reduction was used. CONTRAST: None CT of the brain is performed utilizing 3 mm thick sections through the posterior fossa and 3 mm thick sections through the remaining calvarium. Study is performed within 24 hours of [facility] the [facility]. No abnormal hyperdensity is present to suggest an acute intracranial hemorrhage. No mass lesion is evident. No acute infarcts are evident. Ventricles and sulci are appropriate for the patient age. Paranasal sinuses and mastoid air cells within the [id number] are clear. IMPRESSION: 1. No acute intracranial process. Follow-up MRI can be performed as clinically indicated
[2023-10-18 14:03] VITALS: BP 131/83; PULSE 65; TEMP 98.1
== END 2023-10-18 14:01 | disposition home or self-care (01) ==
LOC: EC 10:54
DX: S06.0X0A Concussion without loss of consciousness, initial encounter (principal); F17.200 Nicotine dependence, unspecified, uncomplicated; F12.90 Cannabis use, unspecified, uncomplicated; R40.2410 Glasgow coma scale score 13-15, unspecified time; W22.8XXA Striking against or struck by other objects, initial encounter
CPT/HCPCS: 70450; 99284